=== PATIENT | male | born 1955 | race Caucasian/White ===

== ENCOUNTER 2019-08-25 13:19 | Emergency (ER) | payer SELFPAY ==
--- NOTE | 2019-08-25 13:33 | ER Document Report ---
ED Medical Screen (RME) - General Chief Complaint: Syncope Stated Complaint: SYNCOPE Time Seen by Provider: 08/25/19 13:25 Primary Care Provider: DOMINGO PATEL MD [Primary Care Provider] - Follow up as needed Mode of Arrival: Wheelchair Information source: Patient Notes: 64-year-old male with extensive cardiac history, recent cardiac bypass 1 month ago at [facility] before that history of stents, aortic aneurysm resection, presents to the emergency department with complaints that he has had 1 syncopal episodes today. Reports he was just walking any passed out. Hit his hand on the wall. He is taking Xarelto. Reports today he was walking in the kitchen and he almost passed out but his son caught him. Denies fever vomiting diarrhea. Denies chest pain shortness of breath. Patient still has his sutures from the recent bypass. I have greeted and performed a rapid initial assessment of this patient. A comprehensive ED assessment and evaluation of the patient, analysis of test results and completion of the medical decision making process will be conducted by additional ED providers. Dictation of this chart was performed using voice recognition software; therefore, there may be some unintended grammatical errors. - Related Data Allergies/Adverse Reactions: diazepam [From Valium] Adverse Reaction (Unknown, Verified 08/25/19 13:30) Hypotension Past Medical History - Past Medical History Cardiac Medical History: Reports: Hx Coronary Artery Disease - RIGHT CAROTID ARTERY 100% OCCLUDED , Hx Hypertension Denies: Hx Heart Attack Pulmonary Medical History: Reports: Hx Pneumonia Denies: Hx Asthma, Hx Bronchitis, Hx COPD Neurological Medical History: Denies: Hx Seizures Musculoskeltal Medical History: Reports Hx Arthritis - IN NECK - Immunizations Hx Diphtheria, Pertussis, Tetanus Vaccination: Yes Doctor's Discharge - Discharge Referrals: DOMINGO PATEL MD [Primary Care Provider] - Follow up as needed
[2019-08-25 13:51] LABS: ABSOLUTE EOSINOPHILS # (AUTO) 0.1 10^3/uL (0.0-0.6); ABSOLUTE LYMPHOCYTES (AUTO) 0.9 10^3/uL (0.5-4.7); ABSOLUTE MONOCYTES (AUTO) 0.7 10^3/uL (0.1-1.4); ABSOLUTE NEUT (AUTO) 11.9 10^3/uL (1.7-8.2); BASOPHILS % (AUTO) 0.1 % (0-2); EOSINOPHILS % (AUTO) 0.5 % (0-6); HEMATOCRIT 32.6 % (37.9-51.0); HEMOGLOBIN 10.4 g/dL (13.5-17.0); LYMPHOCYTES % (AUTO) 6.8 % (13-45); MEAN CORPUSCULAR HEMOGLOBIN 24.9 pg (27.0-33.4); MEAN CORPUSCULAR VOLUME 78 fl (80-97); MONOCYTES % (AUTO) 5.1 % (3-13); PLATELET COUNT 168 10^3/uL (150-450); RED BLOOD COUNT 4.19 10^6/uL (4.35-5.55); RED CELL DISTRIBUTION WIDTH 24.2 % (11.5-14.0); SEGMENTED NEUTROPHILS % (AUTO) 87.5 % (42-78); TOTAL CELLS COUNTED % (AUTO) 100 %; WHITE BLOOD COUNT 13.6 10^3/uL (4.0-10.5)
[2019-08-25 14:07] LABS: ALBUMIN 3.3 g/dL (3.5-5.0); ALKALINE PHOSPHATASE 74 U/L (38-126); ANION GAP 8 (5-19); ASPARTATE AMINO TRANSFERASE 22 U/L (17-59); BILIRUBIN,TOTAL 0.9 mg/dL (0.2-1.3); BLOOD UREA NITROGEN 20 mg/dL (7-20); CALCIUM 8.5 mg/dL (8.4-10.2); CARBON DIOXIDE 25 mmol/L (22-30); CHLORIDE 100 mmol/L (98-107); GLUCOSE 88 mg/dL (75-110); POTASSIUM 4.2 mmol/L (3.6-5.0); TOTAL PROTEIN 6.1 g/dL (6.3-8.2)
--- NOTE | 2019-08-25 14:12 | RADIOLOGY REPORT (SQ) ---
EXAM DESCRIPTION: CHEST 2 VIEWS COMPLETED DATE/TIME: 08/25/2019 2:03 pm REASON FOR STUDY: syncope COMPARISON: None. EXAM PARAMETERS: NUMBER OF VIEWS: two views TECHNIQUE: Digital Frontal and Lateral radiographic views of the chest acquired. RADIATION DOSE: NA LIMITATIONS: none FINDINGS: LUNGS AND PLEURA: There are areas of infiltrate in the right upper lobe and left upper lob e. Underlying mass cannot be excluded on the right. Changes in the left upper lobe could represent scarring. Correlation with any previous chest films is recommended. MEDIASTINUM AND HILAR STRUCTURES: No masses or contour abnormalities. HEART AND VASCULAR STRUCTURES: Heart normal size. No evidence for failure. BONES: No acute findings. HARDWARE: Sternotomy wires are in place. OTHER: No other significant finding. IMPRESSION: Masslike infiltrate in the right upper lobe. Focal infiltrate in the left apex possibly scar or pneumonia. TECHNICAL DOCUMENTATION: JOB ID: [id number] [employer]- All Rights Reserved Reading location - IP/workstation name: [email or web address]
[2019-08-25 14:18] LABS: ANISOCYTOSIS 3+; OVALOCYTES 2+; PLATELET COMMENT ADEQUATE; POIKILOCYTOSIS 1+; POLYCHROMASIA 1+; SCHISTOCYTES SLIGHT; TEAR DROP CELLS SLIGHT
[2019-08-25] MEDS ORDERED: DIPH/PERTUSS(ACELL)/TETANUS VAC/PF 0.5 ML SYR (>=10YO) IM ONE (15:21)
--- NOTE | 2019-08-25 15:26 | ER Document Report ---
ED General - General Chief Complaint: Syncope Stated Complaint: SYNCOPE Time Seen by Provider: 08/25/19 13:25 Primary Care Provider: DOMINGO PATEL MD [Primary Care Provider] - Follow up as needed Mode of Arrival: Wheelchair - Related Data Allergies/Adverse Reactions: diazepam [From Valium] Adverse Reaction (Unknown, Verified 08/25/19 13:30) Hypotension Past Medical History - General Information source: Patient - Social History Smoking Status: Unknown if Ever Smoked Frequency of alcohol use: None Drug Abuse: None Family History: None - Noncontributory Patient has suicidal ideation: No Patient has homicidal ideation: No - Past Medical History Cardiac Medical History: Reports: Hx Coronary Artery Disease - RIGHT CAROTID ARTERY 100% OCCLUDED , Hx Hypertension Denies: Hx Heart Attack Pulmonary Medical History: Reports: Hx Pneumonia Denies: Hx Asthma, Hx Bronchitis, Hx COPD Neurological Medical History: Denies: Hx Seizures Musculoskeletal Medical History: Reports Hx Arthritis - IN NECK - Immunizations Hx Diphtheria, Pertussis, Tetanus Vaccination: Yes Hx Pneumococcal Vaccination: 10/13/13 Physical Exam - Vital signs Vitals: Resp BP Pulse Ox 13 141/71 H 100 08/25/19 13:33 08/25/19 13:33 08/25/19 13:33 - Notes Notes: Presents emergency department with a syncopal episode yesterday. He says he was walking across the living room and had some very mild vertiginous symptoms and woke up on the ground. No palpitations chest pain short of breath or headache. He does not remember eating the ground. He woke up on the ground he thinks is only down the for short period of time. He had no tongue biting or incontinence. Was able to get up. Presents blood pressure was 80/50 at the time with a heart rate of 40 and over the next hour or so heart rate and blood pressure improved. He was feeling better so he did not come to the emergency department yesterday. Today had another similar episode he was walking across t he room got lightheaded about to pass out but his son caught him and legs and ground he came around. That time his blood pressure was normal again he had no chest pain shortness of breath headache or palpitations. At this time patient denies any headache chest pain shortness of breath nausea vomiting or abdominal pain. He denies any diarrhea or blood in his stools or dark tarry stools. Diet has been good he has had no fevers or cough. Was discharged from the hospital about a month ago after CABG. As he is not in rehab but is been walking for 15 minutes at a time twice a day and not getting lightheaded. Onset about a week ago he noticed that his heart rate was in the 40s and he stopped taking his metoprolol Past medical history significant for coronary artery disease with recent CABG. He had stents in the past also has history of hypertension. Social history does not smoke occasional alcohol. Tetanus status is unknown Medications he is currently on Xarelto and was placed on amiodarone prophylactically post discharge Review of systems pertinent positives and negatives in HPI otherwise all the systems were reviewed and acutely negative PHYSICIAN EXAM -vital signs are noted triage note and note from triage reviewed GENERAL: Well-appearing, well-nourished and in ___no___ HEAD: Atraumatic, normocephalic. EYES: Pupils equal round and reactive to light, extraocular movements intact, no nystagmus or photophobia sclera anicteric, conjunctiva are normal. ENT: nares patent, oropharynx clear without exudates. Moist mucous membranes. NECK: supple without lymphadenopathy tender in the midline with full range of motion LUNGS: Breath sounds clear to auscultation bilaterally and equal. No wheezes rales or rhonchi. Well-healing wound over the chest HEART: Regular rate and rhythm is a 2/6 systolic ejection murmur. ABDOMEN: Soft, nontender, normoactive bowel sounds. Old area of ecchymosis to the left lower quadrant EXTREMITIES: Trace edema at the ankles is no palpable cords. To the surgical incision sites in the left leg that are healing well left upper extremity the elbow and wrist are nontender the hand is nontender is no pain with flexion or extension of the wrist. He has multiple abrasions over the metacarpal heads PIP joint full range of motion of the digits and good capillary refill NEUROLOGICAL: Alert and oriented x4. Cranial nerves she is symmetrical smile faces and shoulder shrug. His motor strength is symmetric bilateral in the upper lower extremities. Toes downgoing. Sensation intact to light touch. Negative Romberg PSYCH: Normal mood, normal affect. SKIN: Warm, Dry, normal turgor, no rashes or lesions noted. BACK-nontender in the midline Course - Re-evaluation Re-evalutation: 08/25/19 18:48 ED patient is remained stable is been a compliance monitor no severe arrhythmias. Blood pressures been stable. Orthostatic vital signs were obtained was a difference. 5 cc of normal saline is repeated with no change. She reportedly felt dizzy but on repeat he had no dizziness. Able to ambulate to the bathroom without difficulty Medical decision making patient presents with a syncopal episode yesterday associated with hypotension and bradycardia that resolved. He is not taking the beta-joselo so unclear why his heart rate would be slow. This is more consistent with a vasovagal type of episode he was slightly orthostatic here responded to fluids he is feeling better I did discuss the case with his designer/writer who reviewed his laboratory studies and it felt they were about baseline from when he left the hospital was that he had a left bundle in the past. He felt that if the patient was feeling that he could be discharged home hold his blood pressure medications and Xarelto and be seen in the office tomorrow for further evaluation and possible monitoring I discussed findings with patient and family and they are comfortable going home - Vital Signs Vital signs: Temp Pulse Resp BP Pulse Ox 57 L 14 137/79 H 100 08/25/19 17:57 08/25/19 18:01 08/25/19 18:01 08/25/19 18:01 - Laboratory Result Diagrams: 08/25/19 13:39 08/25/19 13:39 Laboratory results interpreted by me: 08/25/19 08/25/19 13:39 13:39 WBC 13.6 H RBC 4.19 L Hgb 10.4 L Hct 32.6 L MCV 78 L MCH 24.9 L RDW 24.2 H Lymph % (Auto) 6.8 L Absolute Neuts (auto) 11.9 H Seg Neutrophils % 87.5 H Sodium 133.1 L Creatinine 1.42 H Est GFR (MDRD) Non-Af 50 L Total Protein 6.1 L Albumin 3.3 L - Diagnostic Test Radiology reviewed: Reports reviewed Radiology results interpreted by me: 08/25/19 18:51 I discussed the chest x-ray findings with the patient and family they report he has had an old chronic scar in his right upper lobe that I do not feel this is acute to represent an infiltrate. He has no complaints of fever or cough - EKG Interpretation by Me Additional EKG results interpreted by me: 08/25/19 18:50 Initial EKG read by me shows a sinus bradycardia with a rate of 55 with a left bundle branch block. There is no scarbosa criteria repeat EKG is unchanged from the first Discharge - Discharge Clinical Impression: Abrasion Syncope Qualifiers: Syncope type: unspecified Qualified Code(s): R55 - Syncope and collapse Disposition: HOME, SELF-CARE Instructions: Syncopal Episode ([facility]) Additional Instructions: Please review the discharge instructions, they will tell you about your disease/injury and what you need to return to the ED for Return to the ED if you feel worse or can follow-up with your family doctor Avoid rapid movement Do not take your enalapril metoprolol or Xarelto in the morning call your designer/writer tomorrow to be seen tomorrow Referrals: DOMINGO PATEL MD [Primary Care Provider] - Follow up as needed
--- NOTE | 2019-08-25 15:51 | RADIOLOGY REPORT (SQ) ---
EXAM DESCRIPTION: CT HEAD WITHOUT COMPLETED DATE/TIME: 08/25/2019 3:39 pm REASON FOR STUDY: Syncope COMPARISON: None. TECHNIQUE: Axial images acquired through the brain without intravenous contrast. Images reviewed wi th bone, brain and subdural windows. Additional sagittal and coronal reconstructions were generated. Images stored on PACS. All CT scanners at this facility use dose modulation, iterative reconstruction, and/or weight based d osing when appropriate to reduce radiation dose to as low as reasonably achievable (ALARA). [facility]: Dose Right [facility]: CareDose [facility]: Dose Right [facility]: Teradose 4D [facility]: Dine in RADIATION DOSE: CT Rad equipment meets quality standard of care and radiation dose reduction techniq ues were employed. CTDIvol: 53.2 mGy. DLP: 1044 mGy-cm. mGy. LIMITATIONS: None. FINDINGS: VENTRICLES: Normal size and contour. CEREBRUM: No masses. No hemorrhage. No midline shift. No evidence for acute infarction. Normal gra y/white matter differentiation. No areas of low density in the white matter. CEREBELLUM: No masses. No hemorrhage. No alteration of density. No evidence for acute infarction. EXTRAAXIAL SPACES: No fluid collections. No masses. ORBITS AND GLOBE: No intra- or extraconal masses. Normal contour of globe without masses. CALVARIUM: No fracture. PARANASAL SINUSES: No fluid or mucosal thickening. SOFT TISSUES: No mass or hematoma. OTHER: No other significant finding. IMPRESSION: NORMAL BRAIN CT WITHOUT CONTRAST. EVIDENCE OF ACUTE STROKE: NO. COMMENT: Quality ID # [id number]: Final reports with documentation of one or more dose reduction techniques (e.g., Automated exposure control, adjustment of the mA and/or kV according to patient size, use of iterative reconstruction technique) TECHNICAL DOCUMENTATION: JOB ID: [id number] [employer]- All Rights Reserved Reading location - IP/workstation name: [email or web address]
[2019-08-25 15:55] LABS: APPEARANCE,URINE CLEAR; BILIRUBIN,URINE NEGATIVE (NEGATIVE); COLOR,URINE STRAW; GLUCOSE, URINE NEGATIVE (NEGATIVE); KETONES,URINE NEGATIVE (NEGATIVE); LEUKOCYTE ESTERASE,URINE NEGATIVE (NEGATIVE); NITRITE,URINE NEGATIVE (NEGATIVE); PROTEIN,URINE NEGATIVE (NEGATIVE); URINE SPECIFIC GRAVITY 1.004; UROBILINOGEN,URINE NEGATIVE mg/dL (<2.0)
[2019-08-25] MEDS ORDERED: NORMAL SALINE 500 ML IV ONE (16:28)
[2019-08-25 18:33] VITALS: BP 137/79
--- NOTE | 2019-08-25 23:29 | EKG REPORT ---
SEVERITY:- ABNORMAL ECG - SINUS RHYTHM LEFT BUNDLE BRANCH BLOCK : Confirmed by: Paulette Holman MD 25-Aug-2019 23:28:52
--- NOTE | 2019-08-25 23:29 | EKG REPORT ---
SEVERITY:- ABNORMAL ECG - SINUS RHYTHM FIRST DEGREE AV BLOCK LEFT BUNDLE BRANCH BLOCK : Confirmed by: Paulette Holman MD 25-Aug-2019 23:28:47
== END 2019-08-25 18:30 | disposition home or self-care (01) ==
LOC: ER 13:19
DX: R55 Syncope and collapse (principal); S60.519A Abrasion of unspecified hand, initial encounter; X58.XXXA Exposure to other specified factors, initial encounter; Z95.5 Presence of coronary angioplasty implant and graft; I25.10 Atherosclerotic heart disease of native coronary artery without angina pectoris; I10 Essential (primary) hypertension; Z79.01 Long term (current) use of anticoagulants; Z79.899 Other long term (current) drug therapy
CPT/HCPCS: 93005; 36415; 85025; 80053; 81001; 84484; 71046; 70450; 90715; 93010; J7040

== ENCOUNTER 2020-04-07 15:32 | Inpatient (IN) | payer SELFPAY ==
[2020-04-07 16:09] LABS: ABSOLUTE EOSINOPHILS # (AUTO) 0.1 10^3/uL (0.0-0.6); ABSOLUTE LYMPHOCYTES (AUTO) 0.4 10^3/uL (0.5-4.7); ABSOLUTE MONOCYTES (AUTO) 0.4 10^3/uL (0.1-1.4); ABSOLUTE NEUT (AUTO) 1.4 10^3/uL (1.7-8.2); BASOPHILS % (AUTO) 0.3 % (0-2); EOSINOPHILS % (AUTO) 4.3 % (0-6); HEMATOCRIT 29.3 % (37.9-51.0); HEMOGLOBIN 9.5 g/dL (13.5-17.0); LYMPHOCYTES % (AUTO) 16.6 % (13-45); MEAN CORPUSCULAR HEMOGLOBIN 21.8 pg (27.0-33.4); MEAN CORPUSCULAR HGB CONC 32.4 g/dL (32.0-36.0); MEAN CORPUSCULAR VOLUME 67 fl (80-97); MONOCYTES % (AUTO) 18.2 % (3-13); PLATELET COUNT 183 10^3/uL (150-450); RED BLOOD COUNT 4.35 10^6/uL (4.35-5.55); RED CELL DISTRIBUTION WIDTH 18.4 % (11.5-14.0); SEGMENTED NEUTROPHILS % (AUTO) 60.6 % (42-78); TOTAL CELLS COUNTED % (AUTO) 100 %; WHITE BLOOD COUNT 2.3 10^3/uL (4.0-10.5)
[2020-04-07 16:24] LABS: ALBUMIN 3.2 g/dL (3.5-5.0); ALKALINE PHOSPHATASE 459 U/L (38-126); ANION GAP 8 (5-19); ASPARTATE AMINO TRANSFERASE 249 U/L (17-59); BILIRUBIN,DIRECT 0.1 mg/dL (0.0-0.4); BILIRUBIN,TOTAL 0.7 mg/dL (0.2-1.3); BLOOD UREA NITROGEN 9 mg/dL (7-20); CALCIUM 7.7 mg/dL (8.4-10.2); CARBON DIOXIDE 23 mmol/L (22-30); CHLORIDE 99 mmol/L (98-107); CREATINE KINASE 77 U/L (55-170); GLUCOSE 95 mg/dL (75-110); POTASSIUM 4.2 mmol/L (3.6-5.0); TOTAL PROTEIN 6.3 g/dL (6.3-8.2)
--- NOTE | 2020-04-07 16:26 | RADIOLOGY REPORT (SQ) ---
EXAM DESCRIPTION: CHEST SINGLE VIEW IMAGES COMPLETED DATE/TIME: 04/07/2020 4:04 pm REASON FOR STUDY: sob COMPARISON: 08/25/2019 EXAM PARAMETERS: NUMBER OF VIEWS: One view. TECHNIQUE: Single frontal radiographic view of the chest acquired. RADIATION DOSE: NA LIMITATIONS: None. FINDINGS: LUNGS AND PLEURA: Scarring in the right upper lobe than left upper lobe. There is a somew hat reticulonodular opacification in the left base that is not seen on the earlier study. MEDIASTINUM AND HILAR STRUCTURES: No masses. Contour normal. HEART AND VASCULAR STRUCTURES: Heart normal in size. Normal vasculature. BONES: No acute findings. HARDWARE: None in the chest. OTHER: No other significant finding. IMPRESSION: Cannot exclude a limited left lower lobe pneumonia. TECHNICAL DOCUMENTATION: JOB ID: [id number] 2010 [employer]- All Rights Reserved Reading location - IP/workstation name: [email or web address]
[2020-04-07 16:35] LABS: CREATINE KINASE MB 1.57 ng/mL (<4.55); TROPONIN I 0.015 ng/mL
--- NOTE | 2020-04-07 16:40 | ER Document Report ---
ED General - General Chief Complaint: Shortness Of Breath Stated Complaint: SHORTNESS OF BREATH Primary Care Provider: DOMINGO PATEL MD [Primary Care Provider] - Follow up as needed Mode of Arrival: Ambulatory Information source: Patient Notes: 04/07/20 15:46 - ED Nursing Note by CYNTHIA CHRISTIANSONY Acct Num: [id number] : 1955 Patient Age: 64 pt presents to the ED via EMS with report of increasing shortness of breath. Pt tested positive for COVID on 03/27 and states that he has been staying home and resting. Over the past few days he states that he has been having fevers up to 103, temp of 99.9 today. pt states when he awoke this morning and reports that he vomited and is nauseous with increasing shortness of breath. Pt was 75% on RA when EMS arrived. Pt is currently on 6L NC and 93%. Pt denies pain and nausea at this time. Pt is a/ox4, breathing is rapid, on the bedside monitor at this time. Will continue to monitor my notes 64-year-old male arrives by EMS with mild cough and shortness of breath. He was running fevers and having diarrhea for the last 4 days. This morning he had some nausea with vomiting and some increasing shortness of breath. The sats were low when EMS arrived and they increased to 93% on 6 L. Patient reports his was diagnosed with COVID-19 2 weeks ago and intubated in the ICU upstairs. Patient also tested positive last week for juarez virus. Patient has a prior history of a CABG in 2008 and quit smoking 2 packs/day since he began when he was 15 years old. Patient also had an aortic graft in the same year. He has a old scar from his manubrium to below his umbilicus. - HPI Onset: Other - 4 days ago Onset/Duration: Persistent, Worse Quality of pain: Achy Severity: Mild Pain Level: 1 Associated symptoms: Body/muscle aches, Diarrhea, Fever Exacerbated by: Denies Relieved by: Denies Similar symptoms previously: No Recently seen / treated by doctor: No - Related Data Allergies/Adverse Reactions: diazepam [From Valium] Adverse Reaction (Unknown, Verified 08/25/19 13:30) Hypotension Home Medications: meds at the bedside Past Medical History - General Information source: Patient - Social History Smoking Status: Former Smoker Cigarette use (# per day): No Chew tobacco use (# tins/day): No Smoking Education Provided: No Frequency of alcohol use: None Drug Abuse: None Lives with: Family Family History: None - Noncontributory, Reviewed & Not Pertinent Patient has suicidal ideation: No Patient has homicidal ideation: No - Past Medical History Cardiac Medical History: Reports: Hx Coronary Artery Disease - RIGHT CAROTID ARTERY 100% OCCLUDED , Hx Hypertension Denies: Hx Heart Attack Pulmonary Medical History: Reports: Hx Pneumonia Denies: Hx Asthma, Hx Bronchitis, Hx COPD Neurological Medical History: Denies: Hx Seizures Musculoskeletal Medical History: Reports Hx Arthritis - IN NECK - Immunizations Hx Diphtheria, Pertussis, Tetanus Vaccination: Yes Hx Pneumococcal Vaccination: 10/13/13 Review of Systems - Review of Systems Constitutional: See HPI, Fever, Malaise, Weakness, Recent illness EENT: See HPI, Throat pain Cardiovascular: See HPI, Dyspnea, Dizziness, Lightheaded Respiratory: See HPI, Cough, Short of breath Gastrointestinal: See HPI, Diarrhea Genitourinary: No symptoms reported Male Genitourinary: No symptoms reported Musculoskeletal: No symptoms reported Skin: See HPI Hematologic/Lymphatic: No symptoms reported Neurological/Psychological: No symptoms reported Physical Exam - Vital signs Vitals: Resp Pulse Ox 21 H 92 04/07/20 15:37 04/07/20 15:37 Interpretation: Hypoxic, Tachypneic, Febrile, Other - General General appearance: Alert - HEENT Head: Normocephalic, Atraumatic Eyes: Normal Pupils: PERRL Sinus: Normal Nasal: Normal Mouth/Lips: Normal Mucous membranes: Dry Pharynx: Normal Neck: Normal - Respiratory Respiratory status: Tachypnea Chest status: Tender - Left anterior chest Breath sounds: Normal Chest palpation: Normal - Cardiovascular Rhythm: Regular Heart sounds: Normal auscultation Murmur: No - Abdominal Inspection: Normal Distension: No distension Bowel sounds: Normal Tenderness: Nontender Organomegaly: No organomegaly - Rectal Hemorrhoids: Other - deferred - Genitourinary Scrotum: Other - deferred - Back Back: Normal - Extremities General upper extremity: Normal inspection, Nontender, Normal color, Normal ROM, Normal temperature General lower extremity: Normal inspection, Nontender, Normal color, Normal ROM, Normal temperature, Normal weight bearing. No: Fabiola's sign - Neurological Neuro grossly intact: Yes Cognition: Normal Orientation: AAOx4 [place] Coma Scale Eye Opening: Spontaneous Randall Coma Scale Verbal: Oriented [place] Coma Scale Motor: Obeys Commands [place] Coma Scale Total: 15 Speech: Normal Motor strength normal: LUE, RUE, LLE, RLE Sensory: Normal - Psychological Associated symptoms: Normal affect - Skin Skin Temperature: Warm Skin Turgor: Tenting Course - Vital Signs Vital signs: Temp Pulse Resp BP Pulse Ox 98.9 F 19 123/75 91 L 04/07/20 16:37 04/07/20 16:01 04/07/20 16:01 04/07/20 16:01 - Laboratory Result Diagrams: 04/07/20 15:40 04/07/20 15:40 Laboratory results interpreted by me: 04/07/20 04/07/20 15:40 15:40 WBC 2.3 L Hgb 9.5 L Hct 29.3 L MCV 67 L MCH 21.8 L RDW 18.4 H Jack % (Auto) 18.2 H Absolute Neuts (auto) 1.4 L Absolute Lymphs (auto) 0.4 L Sodium 129.9 L Creatinine 1.30 H Est GFR (MDRD) Non-Af 56 L Calcium 7.7 L AST 249 H ALT 98 H Alkaline Phosphatase 459 H Albumin 3.2 L - Diagnostic Test Radiology reviewed: Reports reviewed - EKG Interpretation by Me EKG shows normal: Sinus rhythm Rate: Normal Rhythm: NSR Critical Care Note - Critical Care Note Total time excluding time spent on procedures (mins): 90 Comments: I discussed this case with Dr. Flores initially and then Dr. Conn 1500. Discharge - Discharge Clinical Impression: COVID-19 Pneumonia Qualifiers: Pneumonia type: due to unspecified organism Laterality: left Lung location: lower lobe of lung Qualified Code(s): J18.9 - Pneumonia, unspecified organism Condition: Fair Disposition: ADMITTED INPATIENT Admitting Provider: Senia (Hospitalist) Unit Admitted: IMCU Referrals: DOMINGO PATEL MD [Primary Care Provider] - Follow up as needed
[2020-04-07] MEDS ORDERED: VANCOMYCIN HCL INJ 1000 MG VIAL IV ONE (17:01)
[2020-04-07] MEDS ORDERED: PIPERACILLIN/TAZOBACTAM 3.375 GM VIAL IV ONE (17:01)
[2020-04-07] MEDS ORDERED: LEVOFLOXACIN 750 MG/D5W RTU 750 MG/150 ML RTUPB IV ONE (17:02)
[2020-04-07 18:36] LABS: APPEARANCE,URINE CLEAR; BILIRUBIN,URINE NEGATIVE (NEGATIVE); COLOR,URINE YELLOW; GLUCOSE, URINE NEGATIVE (NEGATIVE); KETONES,URINE NEGATIVE (NEGATIVE); LEUKOCYTE ESTERASE,URINE NEGATIVE (NEGATIVE); NITRITE,URINE NEGATIVE (NEGATIVE); PROTEIN,URINE NEGATIVE (NEGATIVE); URINE SPECIFIC GRAVITY 1.005; UROBILINOGEN,URINE NEGATIVE mg/dL (<2.0)
--- NOTE | 2020-04-07 19:16 | EKG REPORT ---
SEVERITY:- ABNORMAL ECG - SINUS RHYTHM LEFT BUNDLE BRANCH BLOCK : Confirmed by: Alexis Gallegos 07-Apr-2020 19:15:41
[2020-04-07] MEDS ORDERED: VANCOMYCIN HCL INJ 1000 MG VIAL ONE (20:02)
[2020-04-08] MEDS ORDERED: FAMOTIDINE 20 MG TABLET PO ONE (00:45)
[2020-04-08] MEDS ORDERED: NAPROXEN 250 MG TABLET ONE ×2 (01:24→21:48)
[2020-04-08] MEDS: NAPROXEN 250 MG TABLET PO PRN ×2 (01:53→22:02)
[2020-04-08] MEDS ORDERED: MAGNESIUM HYDROXIDE SUSP 30 ML UDCUP PO PRN (03:06)
[2020-04-08] MEDS ORDERED: GUAIFENESIN SYRP 200 MG/10 ML UDC PO PRN (03:06)
[2020-04-08] MEDS ORDERED: MAG HYDROX/AL HYDROX/SIMETH SUSP 30 ML UDCUP PO PRN (03:06)
[2020-04-08] MEDS ORDERED: LORAZEPAM INJ 2 MG/1 ML VIAL IV PRN (03:06)
[2020-04-08] MEDS ORDERED: ACETAMINOPHEN 325 MG TABLET PO PRN (03:06)
[2020-04-08] MEDS ORDERED: MORPHINE SULFATE 10 MG/ML INJ IV PRN (03:06)
[2020-04-08] MEDS ORDERED: ALBUTEROL SULFATE HFA (90 MCG/PUFF) 8 GM MDI IH PRN (03:11)
[2020-04-08] MEDS ORDERED: RINGERS SOLUTION,LACTATED 1,000 ML IV PRN (03:11)
[2020-04-08] MEDS ORDERED: CHLORPROMAZINE HCL INJ 25 MG/1 ML AMPULE ONE (03:48)
--- NOTE | 2020-04-08 03:55 | PDOC H&P ---
History of Present Illness Admission Date/PCP: 04/07/20 17:29 DOMINGO PATEL MD Patient complains of: Dyspnea History of Present Illness: BRAYAN CUH is a 64 year old male who presented emergency room with a 4-day history of dyspnea. He admits testing positive for COVID-19 on 03/27/2020 and since that time has been quarantining at home. 4 days ago he began having mild dyspnea which has subsequently progressed to becoming severe today. His dyspnea is worsened by exertion and activity. His dyspnea has been accompanied by generalized malaise, ague and intermittent fevers to 103 F, and has been associated with episodic nausea with vomiting and diarrhea. He denies other associated or accompanying signs and symptoms. He denies prior similar episodes. He notes his was diagnosed with COVID-19 2 weeks ago and is hospitalized in the ICU on a ventilator. He has not identified any additional aggravating or ameliorating factors for his dyspnea. In the emergency room he was found to have a leukopenia, anemia, elevated liver function tests, hyponatremia and a possible left lower lobe pneumonia with acute hypoxic respiratory failure. He was subsequently admitted to the hospital for further evaluation and treatment. Past Medical History Cardiac Medical History: Reports: Coronary Artery Disease - RIGHT CAROTID ARTERY 100% OCCLUDED , Hyperlipidema, Hypertension, Peripheral Vascular Disease - Carotid and aortic disease Denies: Atrial Fibrillation, Congestive Heart Failure, Myocardial Infarction Pulmonary Medical History: Reports: Pneumonia Denies: Asthma, Bronchitis, Chronic Obstructive Pulmonary Disease (COPD) EENT Medical History: Denies: Cataracts, Ears - Hearing aids Neurological Medical History: Reports: Other - TIA Denies: Hemorrhagic CVA, Ischemic CVA, Seizures Endocrine Medical History: Denies: Diabetes Mellitus Type 1, Diabetes Mellitus Type 2, Hyperthyroidism, Hypothyroidism, Obesity Renal/ Medical History: Reports: Chronic Kidney Disease Denies: Nephrolithiasis Malignancy Medical History: Reports: Skin Cancer GI Medical History: Denies: Cirrhosis, Crohn's Disease, Hepatitis, Peptic Ulcer Disease, Ulcerative Colitis Musculoskeltal Medical History: Reports: Arthritis - Cervical arthritis Denies: Gout Skin Medical History: Denies: Eczema, Psoriasis Psychiatric Medical History: Reports: Depression Denies: Alcohol Dependency, Substance Abuse, Tobacco Dependency Traumatic Medical History: Reports: None Hematology: Denies: Anemia, Bleeding Tendencies Infectious Medical History: Reports: None Past Surgical History Past Surgical History: Reports: Appendectomy, Cardiac Catheterization, Coronary Artery Bypass Graft, Coronary Stent, Vascular Surgery - Abdominal aortic aneurysm Social History Information Source: Patient Lives with: Family Smoking Status: Former Smoker Electronic Cigarette use?: No Frequency of Alcohol Use: None Hx Recreational Drug Use: No Drugs: None Hx Prescription Drug Abuse: No - Advance Directive Resuscitation Status: Full Code Surrogate healthcare decision maker:: Santana Wolfeinkley Family History Family History: CAD, Hypertension, Malignancy. denies: DM Parental Family History Reviewed: Yes Children Family History Reviewed: No Sibling(s) Family History Reviewed.: Yes Medication/Allergy Home Medications: Alprazolam [Xanax] 1 mg PO BID 04/07/20 Atorvastatin Calcium [Lipitor 40 mg Tablet] 40 mg PO QHS 04/07/20 Citalopram Hydrobromide [Celexa 20 mg Tablet] 20 mg PO DAILY 04/07/20 Clopidogrel Bisulfate [Plavix 75 mg Tablet] 75 mg PO DAILY 04/07/20 Enalapril Maleate [Vasotec 2.5 mg Tablet] 2.5 mg PO DAILY 04/07/20 Temazepam [Restoril] 30 mg PO HSP PRN 04/07/20 Allergies/Adverse Reactions: diazepam [From Valium] Adverse Reaction (Unknown, Verified 08/25/19 13:30) Hypotension Review of Systems Constitutional: PRESENT: fever(s), other - Malaise Eyes: ABSENT: visual disturbances, other - Eye pain Ears: ABSENT: hearing changes, other - Ear pain Nose, Mouth, and Throat: ABSENT: headache(s), sore throat Cardiovascular: PRESENT: as per HPI, dyspnea on exertion. ABSENT: chest pain, palpitations Respiratory: PRESENT: as per HPI, dyspnea. ABSENT: cough Gastrointestinal: PRESENT: as per HPI, diarrhea, nausea, vomiting. ABSENT: abdominal pain, constipation Genitourinary: ABSENT: dysuria, hematuria Musculoskeletal: ABSENT: back pain, joint swelling Integumentary: ABSENT: pruritus, rash Neurological: ABSENT: confusion, convulsions, focal weakness, memory loss, syncope Psychiatric: ABSENT: anxiety, depression Endocrine: ABSENT: cold intolerance, heat intolerance Hematologic/Lymphatic: ABSENT: easy bleeding, easy bruising Allergic/Immunologic: ABSENT: seasonal rhinorrhea Physical Exam Vital Signs: Temp Pulse Resp BP Pulse Ox 98.0 F 65 18 140/74 H 86 L 04/07/20 23:16 04/07/20 23:16 04/07/20 23:16 04/07/20 23:16 04/07/20 23:16 Intake & Output 04/06/20 04/07/20 04/08/20 23:59 23:59 23:59 Intake Total 150 Balance 150 Weight 80.1 kg General appearance: PRESENT: no acute distress, cooperative, other - On supplemental oxygen at time of my evaluation Head exam: PRESENT: atraumatic, normocephalic Eye exam: PRESENT: conjunctiva pink. ABSENT: conjunctival injection, scleral icterus Ear exam: PRESENT: normal external ear exam. ABSENT: bleeding, drainage Mouth exam: PRESENT: dry mucosa, neck supple Neck exam: ABSENT: thyromegaly, tracheal deviation Respiratory exam: PRESENT: clear to auscultation moni, symmetrical, unlabored Cardiovascular exam: PRESENT: RRR. ABSENT: clicks, gallop, rubs Pulses: PRESENT: normal radial pulses, normal dorsalis pedis pul Vascular exam: PRESENT: normal capillary refill. ABSENT: pallor GI/Abdominal exam: PRESENT: normal bowel sounds, soft Rectal exam: PRESENT: deferred Extremities exam: ABSENT: joint swelling, pedal edema Musculoskeletal exam: ABSENT: deformity, dislocation Neurological exam: PRESENT: alert, oriented to person, oriented to place, oriented to time, oriented to situation, CN II-XII grossly intact. ABSENT: motor sensory deficit Psychiatric exam: PRESENT: appropriate affect, normal mood Skin exam: PRESENT: dry, intact, warm. ABSENT: jaundice, rash, urticaria Results Laboratory Results: 04/07/20 15:40 04/07/20 15:40 04/07/20 04/07/20 04/07/20 15:40 15:40 15:40 WBC 2.3 L RBC 4.35 Hgb 9.5 L Hct 29.3 L MCV 67 L MCH 21.8 L MCHC 32.4 RDW 18.4 H Plt Count 183 Seg Neutrophils % 60.6 Sodium 129.9 L Potassium 4.2 Chloride 99 Carbon Dioxide 23 Anion Gap 8 BUN 9 Creatinine 1.30 H Est GFR ( Amer) > 60 Glucose 95 Lactic Acid 2.0 Calcium 7.7 L Total Bilirubin 0.7 AST 249 H Alkaline Phosphatase 459 H Total Protein 6.3 Albumin 3.2 L Urine Color Urine Appearance Urine pH Ur Specific [place] Urine Protein Urine Glucose (UA) Urine Ketones Urine Blood Urine Nitrite Ur Leukocyte Esterase Urine WBC (Auto) Urine RBC (Auto) 04/07/20 18:16 WBC RBC Hgb Hct MCV MCH MCHC RDW Plt Count Seg Neutrophils % Sodium Potassium Chloride Carbon Dioxide Anion Gap BUN Creatinine Est GFR ( Amer) Glucose Lactic Acid Calcium Total Bilirubin AST Alkaline Phosphatase Total Protein Albumin Urine Color YELLOW Urine Appearance CLEAR Urine pH 6.0 Ur Specific [place] 1.005 Urine Protein NEGATIVE Urine Glucose (UA) NEGATIVE Urine Ketones NEGATIVE Urine Blood NEGATIVE Urine Nitrite NEGATIVE Ur Leukocyte Esterase NEGATIVE Urine WBC (Auto) 0 Urine RBC (Auto) 0 04/07/20 04/07/20 15:40 15:40 Creatine Kinase 77 CK-MB (CK-2) 1.57 Troponin I 0.015 Impressions: Chest X-Ray 04/07/20 15:36 IMPRESSION: Cannot exclude a limited left lower lobe pneumonia. Assessment and Plan - Diagnosis (1) Pneumonia due to COVID-19 virus Is this a current diagnosis for this admission?: Yes (2) Acute respiratory failure with hypoxia Is this a current diagnosis for this admission?: Yes (3) Leukopenia Qualifiers: Leukopenia type: unspecified Qualified Code(s): D72.819 - Decreased white blood cell count, unspecified Is this a current diagnosis for this admission?: Yes (4) Elevated liver function tests Is this a current diagnosis for this admission?: Yes (5) Hyponatremia Is this a current diagnosis for this admission?: Yes (6) Chronic kidney disease (CKD), stage III (moderate) Is this a current diagnosis for this admission?: Yes (7) Anemia secondary to renal failure Is this a current diagnosis for this admission?: Yes (8) Coronary artery disease Qualifiers: Coronary Disease-Associated Artery/Lesion type: [place] artery [place] vs. transplanted heart: [place] heart Associated angina: without angina Qualified Code(s): I25.10 - Atherosclerotic heart disease of [place] coronary artery with out angina pectoris Is this a current diagnosis for this admission?: Yes (9) Hypertension Qualifiers: Hypertension type: essential hypertension Qualified Code(s): I10 - Essential (primary) hypertension Is this a current diagnosis for this admission?: Yes - Plan Summary Summary: Patient be admitted to the [facility] COVID-19 unit where he will receive routine supportive and symptomatic cares. He will be treated with IV Rocephin and azithromycin. In light of his increasing oxygen requirements to maintain an adequate oxygen saturation and overall worsening of condition he will be started on dexamethasone 2 mg IV every 8 hours. He will be maintained IV fluids utilizing lactated Ringer solution at 167 mL/h. CBCs, metabolic profiles, magnesium levels, liver function studies and serial lactic acid levels will be obtained as appropriate. Additional laboratory and/or radiographic evaluations will be obtained as appropriate. Patient will be placed on a cardiac diet. He will receive morphine 2 to 4 mg IV every 2 hours as needed for pain. He will receive Ativan 1 mg IV every 4 hours as needed for anxiety or restlessness. He will receive supplemental oxygen via nasal cannula with use of noninvasive airway pressure support devices such as BiPAP or CPAP if required. - Time Time Spent with patient: Less than 15 minutes Medications reviewed and adjusted accordingly: Yes Anticipated discharge: Home - Inpatient Certification Based on my medical assessment, after consideration of the patient's comorbidit ies, presenting symptoms, or acuity I expect that the services needed warrant INPATIENT care.: Yes I certify that my determination is in accordance with my understanding of Me memo's requirements for reasonable and necessary INPATIENT services [42 CFR 412.3e].: Yes Medical Necessity: Need Close Monitoring Due to Risk of Patient Decompensation, Need For IV Fluids, Need For Continuous Telemetry Monitoring, Risk of Complication if Not Cared For in Hospital
[2020-04-08 04:35] LABS: PROTHROMBIN TIME 16.3 SEC (11.4-15.4)
[2020-04-08 04:36] LABS: ALBUMIN 2.8 g/dL (3.5-5.0); ALKALINE PHOSPHATASE 371 U/L (38-126); ASPARTATE AMINO TRANSFERASE 160 U/L (17-59); BILIRUBIN,TOTAL 0.7 mg/dL (0.2-1.3); TOTAL PROTEIN 5.4 g/dL (6.3-8.2)
[2020-04-08] MEDS: DEXAMETHASONE SOD PHOSPHATE INJ 4 MG/1 ML VIAL IV SCH ×3 (05:00→20:05)
[2020-04-08] MEDS: HEPARIN SOD (PORCINE) 5,000 UNIT/ML 1 ML VIAL SUBCUT SCH ×3 (06:14→21:45)
[2020-04-08] MEDS: CEFTRIAXONE 1 GM/D5W RTU 1 GM/50 ML RTUPB IV SCH ×2 (06:16→21:44)
[2020-04-08] MEDS ORDERED: AZITHROMYCIN INJ 500 MG VIAL IV ONE (06:21)
[2020-04-08] MEDS: AZITHROMYCIN 500 MG in DEXTROSE 5%-WATER 250 ML IV SCH ×2 (06:27→21:44)
[2020-04-08] MEDS ORDERED: ALBUTEROL SULFATE HFA (90 MCG/PUFF) 200 PUFF/8.5 GM MDI IH PRN (07:37)
[2020-04-08] MEDS: FAMOTIDINE 20 MG TABLET PO SCH ×2 (10:34→17:52)
[2020-04-08] MEDS: ZINC SULFATE 220 MG CAPSULE PO SCH (10:34)
[2020-04-08] MEDS: CHOLECALCIFEROL (D3) 1,000 UNIT (25 MCG) TABLET PO SCH (10:34)
[2020-04-08] MEDS: DOCUSATE SODIUM 100 MG CAPSULE PO SCH ×2 (10:34→17:52)
[2020-04-08] MEDS: CLOPIDOGREL BISULFATE 75 MG TABLET PO SCH (10:34)
[2020-04-08] MEDS: ENALAPRIL MALEATE 2.5 MG TABLET PO SCH (10:34)
[2020-04-08] MEDS: ASCORBIC ACID 500 MG TABLET PO SCH (10:34)
[2020-04-08] MEDS: CITALOPRAM HYDROBROMIDE 20 MG TABLET PO SCH (10:35)
--- NOTE | 2020-04-08 10:56 | PDOC PROGRESS REPORT ---
Subjective Progress Note for:: 04/08/20 Subjective:: Patient still having some shortness of breath. However does not feel extremely dyspneic at this time. He is on 6 L nasal cannula. He denies any chest pain. Still feels very fatigued with poor appetite. Have encouraged patient to try to eat. Reason For Visit: COVID-19 PNEUMONIA,ACUTE RESPIRATORY FAILURE WITH Physical Exam Vital Signs: Temp Pulse Resp BP Pulse Ox 97.7 F 52 L 22 H 114/60 92 04/08/20 08:18 04/08/20 08:18 04/08/20 08:18 04/08/20 08:18 04/08/20 08:18 Intake & Output 04/07/20 04/08/20 04/09/20 06:59 06:59 06:59 Intake Total 150 Balance 150 Weight 80 kg General appearance: PRESENT: no acute distress, cooperative, other - Appears fatigued. ABSENT: thin Neck exam: ABSENT: JVD Respiratory exam: PRESENT: symmetrical, unlabored. ABSENT: accessory muscle use, retraction, tachypnea Cardiovascular exam: PRESENT: RRR. ABSENT: bradycardia, irregular rhythm, tachycardia GI/Abdominal exam: ABSENT: ascites, distended Neurological exam: PRESENT: alert, awake, oriented to person, oriented to place, oriented to time, oriented to situation Psychiatric exam: ABSENT: agitated, anxious Skin exam: ABSENT: jaundice Results Laboratory Results: 04/07/20 15:40 04/07/20 15:40 04/07/20 04/07/20 04/07/20 15:40 15:40 15:40 WBC 2.3 L RBC 4.35 Hgb 9.5 L Hct 29.3 L MCV 67 L MCH 21.8 L MCHC 32.4 RDW 18.4 H Plt Count 183 Seg Neutrophils % 60.6 Sodium 129.9 L Potassium 4.2 Chloride 99 Carbon Dioxide 23 Anion Gap 8 BUN 9 Creatinine 1.30 H Est GFR ( Amer) > 60 Glucose 95 Lactic Acid 2.0 Calcium 7.7 L Total Bilirubin 0.7 AST 249 H Alkaline Phosphatase 459 H Total Protein 6.3 Albumin 3.2 L Urine Color Urine Appearance Urine pH Ur Specific [place] Urine Protein Urine Glucose (UA) Urine Ketones Urine Blood Urine Nitrite Ur Leukocyte Esterase Urine WBC (Auto) Urine RBC (Auto) 04/07/20 04/08/20 04/08/20 18:16 04:00 04:00 WBC RBC Hgb Hct MCV MCH MCHC RDW Plt Count Seg Neutrophils % Sodium Potassium Chloride Carbon Dioxide Anion Gap BUN Creatinine Est GFR ( Amer) Glucose Lactic Acid 1.2 Calcium Total Bilirubin 0.7 AST 160 H Alkaline Phosphatase 371 H Total Protein 5.4 L Albumin 2.8 L Urine Color YELLOW Urine Appearance CLEAR Urine pH 6.0 Ur Specific [place] 1.005 Urine Protein NEGATIVE Urine Glucose (UA) NEGATIVE Urine Ketones NEGATIVE Urine Blood NEGATIVE Urine Nitrite NEGATIVE Ur Leukocyte Esterase NEGATIVE Urine WBC (Auto) 0 Urine RBC (Auto) 0 04/08/20 08:10 WBC RBC Hgb Hct MCV MCH MCHC RDW Plt Count Seg Neutrophils % Sodium Potassium Chloride Carbon Dioxide Anion Gap BUN Creatinine Est GFR ( Amer) Glucose Lactic Acid 1.4 Calcium Total Bilirubin AST Alkaline Phosphatase Total Protein Albumin Urine Color Urine Appearance Urine pH Ur Specific [place] Urine Protein Urine Glucose (UA) Urine Ketones Urine Blood Urine Nitrite Ur Leukocyte Esterase Urine WBC (Auto) Urine RBC (Auto) 04/07/20 04/07/20 15:40 15:40 Creatine Kinase 77 CK-MB (CK-2) 1.57 Troponin I 0.015 Impressions: Chest X-Ray 04/07/20 15:36 IMPRESSION: Cannot exclude a limited left lower lobe pneumonia. Assessment and Plan - Diagnosis (1) Acute respiratory failure with hypoxia Is this a current diagnosis for this admission?: Yes Plan: Secondary to COVID-19. Currently on 6 L nasal cannula with SPO2 in the mid to low 90s. Continue oxygen supplementation as required. Should patient's SPO2 drop further, will transition to high flow nasal cannula. Continue dexamethasone. Will monitor closely. (2) Pneumonia due to COVID-19 virus Is this a current diagnosis for this admission?: Yes Plan: Tested positive for COVID-19 on 03/27/2020 outpatient at PCPs office. Currently on azithromycin as well as ceftriaxone which I will continue in case of concomitant bacterial infection. Supportive care. Started zinc supplements, vitamin C, vitamin D supplements. (3) Hyponatremia Is this a current diagnosis for this admission?: Yes Plan: Likely secondary to dehydration. Administering IV fluids. Will measure metabolic panel in the morning (4) Chronic kidney disease (CKD), stage III (moderate) Is this a current diagnosis for this admission?: Yes Plan: Creatinine of 1.3 on presentation. Labs from 08/2019 show creatinine of 1.4. This could very well be his baseline creatinine indicating of CKD. Will administer fluids given dehydration and check metabolic panel in the morning. (5) Elevated liver function tests Is this a current diagnosis for this admission?: Yes Plan: Likely secondary to viral infection accompanied by leukopenia. Notably transaminases were normal in 08/2019. Does seem to be trending down now. We will opt to monitor simply at this point. (6) Hypertension Qualifiers: Hypertension type: essential hypertension Qualified Code(s): I10 - Essential (primary) hypertension Is this a current diagnosis for this admission?: Yes Plan: Continue enalapril - Time Time Spent with patient: Less than 15 minutes
[2020-04-08] MEDS ORDERED: ALBUTEROL SULFATE HFA (90 MCG/PUFF) 8 GM MDI IH SCH (12:00)
[2020-04-08] MEDS: ALBUTEROL SULFATE HFA (90 MCG/PUFF) 200 PUFF/8.5 GM MDI IH SCH ×2 (12:37→17:52)
[2020-04-08] MEDS: RINGERS SOLUTION,LACTATED 1,000 ML IV PRN ×2 (12:45→20:04)
[2020-04-08] MEDS: ALPRAZOLAM 0.5 MG TABLET PO PRN (21:45)
[2020-04-08] MEDS: ATORVASTATIN CALCIUM 40 MG TABLET PO SCH (21:45)
[2020-04-08] MEDS: MELATONIN 5 MG TABLET PO PRN (22:01)
[2020-04-09] MEDS: DEXAMETHASONE SOD PHOSPHATE INJ 4 MG/1 ML VIAL IV SCH ×3 (03:37→21:25)
[2020-04-09 03:41] LABS: HEMATOCRIT 25.1 % (37.9-51.0); HEMOGLOBIN 8.4 g/dL (13.5-17.0); MEAN CORPUSCULAR HEMOGLOBIN 22.3 pg (27.0-33.4); MEAN CORPUSCULAR HGB CONC 33.3 g/dL (32.0-36.0); MEAN CORPUSCULAR VOLUME 67 fl (80-97); PLATELET COUNT 175 10^3/uL (150-450); RED BLOOD COUNT 3.75 10^6/uL (4.35-5.55); RED CELL DISTRIBUTION WIDTH 19.1 % (11.5-14.0); WHITE BLOOD COUNT 2.1 10^3/uL (4.0-10.5)
[2020-04-09 03:44] LABS: INTERNATIONAL RATION (INR) 1.41; PROTHROMBIN TIME 17.4 SEC (11.4-15.4)
[2020-04-09 04:13] LABS: ALBUMIN 2.7 g/dL (3.5-5.0); ALKALINE PHOSPHATASE 309 U/L (38-126); ANION GAP 6 (5-19); ASPARTATE AMINO TRANSFERASE 132 U/L (17-59); BILIRUBIN,TOTAL 0.5 mg/dL (0.2-1.3); BLOOD UREA NITROGEN 14 mg/dL (7-20); CARBON DIOXIDE 22 mmol/L (22-30); CHLORIDE 107 mmol/L (98-107); GLUCOSE 122 mg/dL (75-110); POTASSIUM 4.6 mmol/L (3.6-5.0); TOTAL PROTEIN 5.6 g/dL (6.3-8.2)
[2020-04-09] MEDS: HEPARIN SOD (PORCINE) 5,000 UNIT/ML 1 ML VIAL SUBCUT SCH ×3 (05:47→21:25)
[2020-04-09] MEDS: ALBUTEROL SULFATE HFA (90 MCG/PUFF) 200 PUFF/8.5 GM MDI IH SCH ×4 (05:47→17:04)
[2020-04-09] MEDS: ENALAPRIL MALEATE 2.5 MG TABLET PO SCH (09:29)
[2020-04-09] MEDS: CLOPIDOGREL BISULFATE 75 MG TABLET PO SCH (09:29)
[2020-04-09] MEDS: ZINC SULFATE 220 MG CAPSULE PO SCH (09:29)
[2020-04-09] MEDS: CITALOPRAM HYDROBROMIDE 20 MG TABLET PO SCH (09:30)
[2020-04-09] MEDS: DOCUSATE SODIUM 100 MG CAPSULE PO SCH ×2 (09:30→17:04)
[2020-04-09] MEDS: CHOLECALCIFEROL (D3) 1,000 UNIT (25 MCG) TABLET PO SCH (09:30)
[2020-04-09] MEDS: ASCORBIC ACID 500 MG TABLET PO SCH (09:30)
[2020-04-09] MEDS: FAMOTIDINE 20 MG TABLET PO SCH ×2 (09:30→17:04)
[2020-04-09] MEDS: RINGERS SOLUTION,LACTATED 1,000 ML IV PRN (10:11)
--- NOTE | 2020-04-09 19:25 | PDOC PROGRESS REPORT ---
Subjective Progress Note for:: 04/09/20 Subjective:: Due to patient being COVID-19 Suspected/Positive, encounter was conducted using telephone and/or videochat and does not include a detailed in-person physical exam in order to preserve PPE and limit staff exposure to a dangerous pathogen. Patient is still quite short of breath today requiring high flow nasal cannula. I had a long discussion with his nurse today regarding his respiratory status and it seems that patient has finally stabilized on his current high flow nasal cannula settings. If he continues to worsen, we may need to reevaluate him for ICU level care. We will continue to monitor in the short-term for now. CTX/Azithro will be continued. He notes improvement today, but still SOB. Reason For Visit: COVID-19 PNEUMONIA,ACUTE RESPIRATORY FAILURE WITH Physical Exam Vital Signs: Temp Pulse Resp BP Pulse Ox 97.6 F 58 L 18 129/61 H 98 04/09/20 15:24 04/09/20 15:24 04/09/20 15:24 04/09/20 15:24 04/09/20 15:31 Intake & Output 04/08/20 04/09/20 04/10/20 06:59 06:59 06:59 Intake Total 150 4192 225 Output Total 800 Balance 150 4192 -575 Weight 80 kg 80 kg General appearance: PRESENT: no acute distress - Due to patient being COVID-19 Suspected/Positive, encounter was conducted using telephone and/or videochat and does not include a detailed in-person physical exam in order to preserve PPE and limit staff exposure to a dangerous pathogen., well-developed, well-nourished Head exam: PRESENT: atraumatic, normocephalic Eye exam: PRESENT: conjunctiva pink, EOMI, PERRLA. ABSENT: scleral icterus Ear exam: PRESENT: normal external ear exam Mouth exam: PRESENT: moist, tongue midline Neck exam: ABSENT: carotid bruit, JVD, lymphadenopathy, thyromegaly Respiratory exam: PRESENT: clear to auscultation moni. ABSENT: rales, rhonchi, wheezes Cardiovascular exam: PRESENT: RRR. ABSENT: diastolic murmur, rubs, systolic murmur Pulses: PRESENT: normal dorsalis pedis pul Vascular exam: PRESENT: normal capillary refill GI/Abdominal exam: PRESENT: normal bowel sounds, soft. ABSENT: distended, guarding, mass, organolmegaly, rebound, tenderness Rectal exam: PRESENT: deferred Extremities exam: PRESENT: full ROM. ABSENT: calf tenderness, clubbing, pedal edema Neurological exam: PRESENT: alert, awake, oriented to person, oriented to place, oriented to time, oriented to situation, CN II-XII grossly intact. ABSENT: motor sensory deficit Psychiatric exam: PRESENT: appropriate affect, normal mood. ABSENT: homicidal ideation, suicidal ideation Skin exam: PRESENT: dry, intact, warm. ABSENT: cyanosis, rash Results Laboratory Results: 04/09/20 03:15 04/09/20 03:15 04/09/20 04/09/20 03:15 03:15 WBC 2.1 L RBC 3.75 L Hgb 8.4 L Hct 25.1 L MCV 67 L MCH 22.3 L MCHC 33.3 RDW 19.1 H Plt Count 175 Sodium 135.2 L Potassium 4.6 Chloride 107 Carbon Dioxide 22 Anion Gap 6 BUN 14 Creatinine 0.95 Est GFR ( Amer) > 60 Glucose 122 H Calcium 8.0 L Magnesium 2.3 Total Bilirubin 0.5 AST 132 H Alkaline Phosphatase 309 H Total Protein 5.6 L Albumin 2.7 L 04/07/20 04/07/20 15:40 15:40 Creatine Kinase 77 CK-MB (CK-2) 1.57 Troponin I 0.015 Impressions: Chest X-Ray 04/07/20 15:36 IMPRESSION: Cannot exclude a limited left lower lobe pneumonia. Assessment and Plan - Diagnosis (1) Pneumonia due to COVID-19 virus Is this a current diagnosis for this admission?: Yes Plan: Tested positive for COVID-19 on 03/27/2020 outpatient at PCPs office. Continue azithromycin/ceftriaxone for likely post viral bacterial infection Continue zinc supplements, vitamin C, vitamin D supplements as well as dexamethasone per current guidelines (2) Acute respiratory failure with hypoxia Is this a current diagnosis for this admission?: Yes Plan: Secondary to COVID-19. Currently on 6 L nasal cannula with SPO2 in the mid to low 90s. Worsened after that and was put on high flow nasal cannula, stabilized thereafter Continue dexamethasone Watch closely for further deterioration as he may need ICU level care if this o ccurs (3) Anemia secondary to renal failure Is this a current diagnosis for this admission?: Yes (4) Chronic kidney disease (CKD), stage III (moderate) Is this a current diagnosis for this admission?: Yes (5) COVID-19 Is this a current diagnosis for this admission?: Yes (6) Coronary artery disease Qualifiers: Coronary Disease-Associated Artery/Lesion type: [place] artery [place] vs. transplanted heart: [place] heart Associated angina: without angina Qualified Code(s): I25.10 - Atherosclerotic heart disease of [place] coronary artery without angina pectoris Is this a current diagnosis for this admission?: Yes (7) Elevated liver function tests Is this a current diagnosis for this admission?: Yes Plan: Likely secondary to viral infection accompanied by leukopenia. Notably transaminases were normal in 08/2019, improving here (8) Hypertension Qualifiers: Hypertension type: essential hypertension Qualified Code(s): I10 - Essential (primary) hypertension Is this a current diagnosis for this admission?: Yes Plan: Controlled, continue enalapril (9) Hyponatremia Is this a current diagnosis for this admission?: Yes (10) Leukopenia Qualifiers: Leukopenia type: unspecified Qualified Code(s): D72.819 - Decreased white blood cell count, unspecified Is this a current diagnosis for this admission?: Yes (11) Pneumonia Qualifiers: Pneumonia type: due to unspecified organism Laterality: left Lung location: lower lobe of lung Qualified Code(s): J18.9 - Pneumonia, unspecified organism Is this a current diagnosis for this admission?: Yes - Time Time Spent with patient: 15-24 minutes Medications reviewed and adjusted accordingly: Yes - Inpatient Certification Based on my medical assessment, after consideration of the patient's comorbidities, presenting symptoms, or acuity I expect that the services needed warrant INPATIENT care.: Yes I certify that my determination is in accordance with my understanding of Medicare's requirements for reasonable and necessary INPATIENT services [42 CFR 412.3e].: Yes Medical Necessity: Significant Comorbidiites Make Outpatient Treatment Too Risky, Need Close Monitoring Due to Risk of Patient Decompensation, Need for IV Antibiotics, Risk of Complication if Not Cared For in Hospital, Risk of Diagnosis Which Will Require Inpatient Eval/Care/Monitoring
[2020-04-09] MEDS: AZITHROMYCIN 500 MG in DEXTROSE 5%-WATER 250 ML IV SCH (21:26)
[2020-04-09] MEDS: CEFTRIAXONE 1 GM/D5W RTU 1 GM/50 ML RTUPB IV SCH (21:26)
[2020-04-09] MEDS: ATORVASTATIN CALCIUM 40 MG TABLET PO SCH (22:30)
[2020-04-09] MEDS ORDERED: TEMAZEPAM 15 MG CAPSULE PO ONE (23:00)
[2020-04-09] MEDS ORDERED: NAPROXEN 250 MG TABLET ONE (23:09)
[2020-04-09] MEDS: MELATONIN 5 MG TABLET PO PRN (23:17)
[2020-04-09] MEDS: NAPROXEN 250 MG TABLET PO PRN (23:18)
[2020-04-10] MEDS ORDERED: HALOPERIDOL LACTATE INJ 5 MG/1 ML VIAL ONE (02:27)
[2020-04-10] MEDS: HALOPERIDOL LACTATE INJ 5 MG/1 ML VIAL IV PRN ×3 (03:00→20:45)
[2020-04-10] MEDS: DEXAMETHASONE SOD PHOSPHATE INJ 4 MG/1 ML VIAL IV SCH ×3 (04:41→20:45)
[2020-04-10] MEDS: ALBUTEROL SULFATE HFA (90 MCG/PUFF) 200 PUFF/8.5 GM MDI IH SCH ×4 (06:22→17:50)
[2020-04-10] MEDS: HEPARIN SOD (PORCINE) 5,000 UNIT/ML 1 ML VIAL SUBCUT SCH ×2 (06:22→13:27)
[2020-04-10] MEDS: ALPRAZOLAM 0.5 MG TABLET PO PRN ×2 (06:22→20:30)
[2020-04-10 07:01] LABS: HEMATOCRIT 23.9 % (37.9-51.0); MEAN CORPUSCULAR HEMOGLOBIN 22.3 pg (27.0-33.4); MEAN CORPUSCULAR HGB CONC 33.2 g/dL (32.0-36.0); MEAN CORPUSCULAR VOLUME 67 fl (80-97); PLATELET COUNT 242 10^3/uL (150-450); RED BLOOD COUNT 3.55 10^6/uL (4.35-5.55); RED CELL DISTRIBUTION WIDTH 19.5 % (11.5-14.0)
[2020-04-10 07:16] LABS: WHITE BLOOD COUNT 9.9 10^3/uL (4.0-10.5)
[2020-04-10 07:18] LABS: HEMOGLOBIN 7.9 g/dL (13.5-17.0)
[2020-04-10 07:26] LABS: ALBUMIN 2.6 g/dL (3.5-5.0); ALKALINE PHOSPHATASE 250 U/L (38-126); ASPARTATE AMINO TRANSFERASE 91 U/L (17-59); BILIRUBIN,TOTAL 0.6 mg/dL (0.2-1.3); BLOOD UREA NITROGEN 18 mg/dL (7-20); CALCIUM 8.1 mg/dL (8.4-10.2); CARBON DIOXIDE 22 mmol/L (22-30); CHLORIDE 108 mmol/L (98-107); GLUCOSE 118 mg/dL (75-110); POTASSIUM 5.1 mmol/L (3.6-5.0); TOTAL PROTEIN 5.5 g/dL (6.3-8.2)
[2020-04-10 07:29] LABS: ANION GAP 4 (5-19)
[2020-04-10 07:51] LABS: INTERNATIONAL RATION (INR) 1.62; PROTHROMBIN TIME 19.4 SEC (11.4-15.4)
[2020-04-10] MEDS: CHOLECALCIFEROL (D3) 1,000 UNIT (25 MCG) TABLET PO SCH (09:30)
[2020-04-10] MEDS: DOCUSATE SODIUM 100 MG CAPSULE PO SCH ×2 (09:30→17:50)
[2020-04-10] MEDS: CLOPIDOGREL BISULFATE 75 MG TABLET PO SCH (09:30)
[2020-04-10] MEDS: ZINC SULFATE 220 MG CAPSULE PO SCH (09:31)
[2020-04-10] MEDS: FAMOTIDINE 20 MG TABLET PO SCH ×2 (09:31→17:50)
[2020-04-10] MEDS: CITALOPRAM HYDROBROMIDE 20 MG TABLET PO SCH (09:31)
[2020-04-10] MEDS: ENALAPRIL MALEATE 2.5 MG TABLET PO SCH (09:31)
[2020-04-10] MEDS: ASCORBIC ACID 500 MG TABLET PO SCH (09:31)
[2020-04-10] MEDS: MULTIVITAMIN TABLET PO SCH (11:43)
--- NOTE | 2020-04-10 19:24 | PDOC PROGRESS REPORT ---
Subjective Progress Note for:: 04/10/20 Subjective:: Due to patient being COVID-19 Suspected/Positive, encounter was conducted using telephone and/or videochat and does not include a detailed in-person physical exam in order to preserve PPE and limit staff exposure to a dangerous pathogen. 04/09/2020 Patient is still quite short of breath today requiring high flow nasal cannula. I had a long discussion with his nurse today regarding his respiratory status and it seems that patient has finally stabilized on his current high flow nasal cannula settings. If he continues to worsen, we may need to reevaluate him for ICU level care. We will continue to monitor in the short-term for now. CTX/Azithro will be continued. He notes improvement today, but still SOB. 04/10/2020 Patient seems to be doing better today, weaning high flow nasal cannula oxygen requirements as able. He states he has bit of a cough but this is mild. He also had an episode of diarrhea but this has not recurred. INR and potassium are rising, continue to monitor with BMP daily. His WBC is risen abruptly at 9.9 though he is not clinically declined today at all. LFTs continue to drop. Blood cultures remain negative. He has no new complaints today. I had an extensive discussion with him during our phone encounter today and answered all of his questions to completion. Reason For Visit: COVID-19 PNEUMONIA,ACUTE RESPIRATORY FAILURE WITH Physical Exam Vital Signs: Temp Pulse Resp BP Pulse Ox 97.3 F 64 20 121/60 91 L 04/10/20 14:59 04/10/20 14:59 04/10/20 16:57 04/10/20 14:59 04/10/20 16:57 Intake & Output 04/09/20 04/10/20 04/11/20 06:59 06:59 06:59 Intake Total 4192 2085 720 Output Total 1100 300 Balance 4192 985 420 Weight 80 kg 80 kg General appearance: PRESENT: other - Due to patient being COVID-19 Suspected/Positive, encounter was conducted using telephone and/or videochat and does not include a detailed in-person physical exam in order to preserve PPE and limit staff exposure to a dangerous pathogen. Results Laboratory Results: 04/10/20 06:30 04/10/20 06:30 04/10/20 04/10/20 06:30 06:30 WBC 9.9 D RBC 3.55 L Hgb 7.9 L Hct 23.9 L MCV 67 L MCH 22.3 L MCHC 33.2 RDW 19.5 H Plt Count 242 Sodium 134.4 L Potassium 5.1 H Chloride 108 H Carbon Dioxide 22 Anion Gap 4 L BUN 18 Creatinine 0.95 Est GFR ( Amer) > 60 Glucose 118 H Calcium 8.1 L Magnesium 2.3 Total Bilirubin 0.6 AST 91 H Alkaline Phosphatase 250 H Total Protein 5.5 L Albumin 2.6 L 04/07/20 04/07/20 15:40 15:40 Creatine Kinase 77 CK-MB (CK-2) 1.57 Troponin I 0.015 Impressions: Chest X-Ray 04/07/20 15:36 IMPRESSION: Cannot exclude a limited left lower lobe pneumonia. Assessment and Plan - Diagnosis (1) Pneumonia due to COVID-19 virus Is this a current diagnosis for this admission?: Yes Plan: Tested positive for COVID-19 on 03/27/2020 outpatient at PCPs office. Continue azithromycin/ceftriaxone for likely post viral bacterial infection Continue zinc supplements, vitamin C, vitamin D supplements as well as dexamethasone per current guidelines Gradually improving, wean high flow nasal cannula oxygen requirements as able (2) Acute respiratory failure with hypoxia Is this a current diagnosis for this admission?: Yes Plan: Secondary to COVID-19. Currently on 6 L nasal cannula with SPO2 in the mid to low 90s. Worsened after that and was put on high flow nasal cannula, stabilized thereafter, requiring 40% consistently and comfortably Continue dexamethasone Watch closely for further deterioration as he may need ICU level care if this occurs (3) Anemia secondary to renal failure Is this a current diagnosis for this admission?: Yes (4) Chronic kidney disease (CKD), stage III (moderate) Is this a current diagnosis for this admission?: Yes (5) COVID-19 Is this a current diagnosis for this admission?: Yes (6) Coronary artery disease Qualifiers: Coronary Disease-Associated Artery/Lesion type: [place] artery [place] vs. transplanted heart: [place] heart Associated angina: without angina Qualified Code(s): I25.10 - Atherosclerotic heart disease of [place] coronary artery without angina pectoris Is this a current diagnosis for this admission?: Yes (7) Elevated liver function tests Is this a current diagnosis for this admission?: Yes (8) Hypertension Qualifiers: Hypertension type: essential hypertension Qualified Code(s): I10 - Essential (primary) hypertension Is this a current diagnosis for this admission?: Yes (9) Hyponatremia Is this a current diagnosis for this admission?: Yes (10) Leukopenia Qualifiers: Leukopenia type: unspecified Qualified Code(s): D72.819 - Decreased white blood cell count, unspecified Is this a current diagnosis for this admission?: Yes (11) Pneumonia Qualifiers: Pneumonia type: due to unspecified organism Laterality: left Lung location: lower lobe of lung Qualified Code(s): J18.9 - Pneumonia, unspecified organism Is this a current diagnosis for this admission?: Yes - Time Time Spent with patient: 25-34 minutes Medications reviewed and adjusted accordingly: Yes - Inpatient Certification Based on my medical assessment, after consideration of the patient's comorbidities, presenting symptoms, or acuity I expect that the services needed warrant INPATIENT care.: Yes I certify that my determination is in accordance with my understanding of Medicare's requirements for reasonable and necessary INPATIENT services [42 CFR 412.3e].: Yes Medical Necessity: Significant Comorbidiites Make Outpatient Treatment Too Risky, Need Close Monitoring Due to Risk of Patient Decompensation, Risk of Complication if Not Cared For in Hospital, Risk of Diagnosis Which Will Require Inpatient Eval/Care/Monitoring
[2020-04-10] MEDS: ATORVASTATIN CALCIUM 40 MG TABLET PO SCH (21:11)
[2020-04-10] MEDS: RINGERS SOLUTION,LACTATED 1,000 ML IV PRN (21:13)
[2020-04-10] MEDS: LORAZEPAM INJ 2 MG/1 ML VIAL IV PRN (21:15)
[2020-04-10] MEDS: CEFTRIAXONE 1 GM/D5W RTU 1 GM/50 ML RTUPB IV SCH (21:16)
[2020-04-10] MEDS: AZITHROMYCIN 500 MG in DEXTROSE 5%-WATER 250 ML IV SCH (21:18)
[2020-04-10] MEDS: TEMAZEPAM 15 MG CAPSULE PO SCH (21:22)
[2020-04-10 21:49] LABS: ARTERIAL BLOOD BASE EXCESS -0.1 mmol/L; ARTERIAL BLOOD FIO2 40%; ARTERIAL BLOOD H2CO3 0.87 mmol/L (1.05-1.35); ARTERIAL BLOOD HCO3 22.5 mmol/L (20-24); ARTERIAL BLOOD O2 SATURATION 92.3 % (94-98); ARTERIAL BLOOD PH 7.51 (7.35-7.45); ARTERIAL BLOOD PO2 56.4 mmHg (80-100); ARTERIAL BLOOD TOTAL CO2 23.4 mmol/L (23-27)
[2020-04-11] MEDS: HEPARIN SOD (PORCINE) 5,000 UNIT/ML 1 ML VIAL SUBCUT SCH ×4 (00:13→23:41)
[2020-04-11] MEDS: ALBUTEROL SULFATE HFA (90 MCG/PUFF) 200 PUFF/8.5 GM MDI IH SCH ×4 (00:14→17:25)
[2020-04-11] MEDS ORDERED: TAMSULOSIN HCL 0.4 MG CAP.SR.24H PO ONE (03:00)
[2020-04-11 03:44] LABS: HEMATOCRIT 23.8 % (37.9-51.0); MEAN CORPUSCULAR HEMOGLOBIN 21.8 pg (27.0-33.4); MEAN CORPUSCULAR HGB CONC 32.5 g/dL (32.0-36.0); MEAN CORPUSCULAR VOLUME 67 fl (80-97); PLATELET COUNT 276 10^3/uL (150-450); RED BLOOD COUNT 3.54 10^6/uL (4.35-5.55); RED CELL DISTRIBUTION WIDTH 19.3 % (11.5-14.0); WHITE BLOOD COUNT 9.1 10^3/uL (4.0-10.5)
[2020-04-11 03:49] LABS: HEMOGLOBIN 7.7 g/dL (13.5-17.0)
[2020-04-11] MEDS: LORAZEPAM INJ 2 MG/1 ML VIAL IV PRN (04:00)
[2020-04-11] MEDS: DEXAMETHASONE SOD PHOSPHATE INJ 4 MG/1 ML VIAL IV SCH ×3 (04:00→21:00)
[2020-04-11 04:02] LABS: INTERNATIONAL RATION (INR) 1.63; PROTHROMBIN TIME 19.5 SEC (11.4-15.4)
[2020-04-11] MEDS ORDERED: ALBUTEROL SULFATE 0.083% NEB 2.5 MG/3 ML AMPUL NEB ONE (08:45)
--- NOTE | 2020-04-11 08:58 | RADIOLOGY REPORT (SQ) ---
EXAM DESCRIPTION: CHEST SINGLE VIEW IMAGES COMPLETED DATE/TIME: 04/11/2020 8:48 am REASON FOR STUDY: Increasing dyspnea COMPARISON: 04/07/2020 NUMBER OF VIEWS: One view. TECHNIQUE: Single frontal radiographic image of the chest acquired. LIMITATIONS: None. FINDINGS: LUNGS AND PLEURA: Bilateral airspace disease with relative sparing of the left upper lobe not significantly changed. There is a background of emphysema. No pneumothorax. MEDIASTINUM AND HILAR STRUCTURES: Stable heart size and mediastinal structures. HEART AND VASCULAR STRUCTURES: Stable appearance. BONES: No acute findings. HARDWARE: None in the chest. OTHER: No other significant finding. IMPRESSION: No significant change. TECHNICAL DOCUMENTATION: JOB ID: [id number] 2010 [employer]- All Rights Reserved Reading location - IP/workstation name: SHA
--- NOTE | 2020-04-11 09:20 | PDOC PROGRESS REPORT ---
Subjective Progress Note for:: 04/11/20 Subjective:: Due to patient being COVID-19 Suspected/Positive, encounter was conducted using telephone and/or videochat and does not include a detailed in-person physical exam in order to preserve PPE and limit staff exposure to a dangerous pathogen. 04/09/2020 Patient is still quite short of breath today requiring high flow nasal cannula. I had a long discussion with his nurse today regarding his respiratory status and it seems that patient has finally stabilized on his current high flow nasal cannula settings. If he continues to worsen, we may need to reevaluate him for ICU level care. We will continue to monitor in the short-term for now. CTX/Azithro will be continued. He notes improvement today, but still SOB. 04/10/2020 Patient seems to be doing better today, weaning high flow nasal cannula oxygen requirements as able. He states he has bit of a cough but this is mild. He also had an episode of diarrhea but this has not recurred. INR and potassium are rising, continue to monitor with BMP daily. His WBC is risen abruptly at 9.9 though he is not clinically declined today at all. LFTs continue to drop. Blood cultures remain negative. He has no new complaints today. I had an extensive discussion with him during our phone encounter today and answered all of his questions to completion. 04/11/2020 Per my discussion with the office rental clerk, patient had some acute confusion overnight but was redirectable and his oxygen requirement was increased, thereafter seemed to improve. I was called by nursing this morning regarding the patient's continued acute decline despite escalation of NIV to BiPAP rather than high flow nasal cannula and despite increase FiO2 to 100%. Patient is still having desaturations to the 70s and 80s. I have called Dr. Shea in critical care and discussed the case in detail with him. He is in agreement that the patient requires ICU level care and he is accepted the patient to his service. The patient as of this morning has decided he would like to be intubated despite the chart indicating he had previously wanted to be DNR/DNI. Dr. Shea anticipates the patient will need to be intubated and prefers this be done in ICU in a controlled setting with the appropriate customer support technician in attendance. I discussed this plan with nursing and they are in agreement with this, planning to back the patient on his way down. Per RN, patient is currently still alert and talking, appears to be relatively stable for trans portation to ICU. I have added some additional lab orders to assist with the monitoring of the patient's decline. We will need to take appropriate measures to transport the patient safely in order to contain the highly infectious virus that the patient currently has. Reason For Visit: COVID-19 PNEUMONIA,ACUTE RESPIRATORY FAILURE WITH Physical Exam Vital Signs: Temp Pulse Resp BP Pulse Ox 97.8 F 56 L 22 H 137/53 H 99 04/11/20 03:35 04/11/20 03:35 04/11/20 03:35 04/11/20 03:35 04/11/20 04:00 Intake & Output 04/10/20 04/11/20 04/12/20 06:59 06:59 06:59 Intake Total 2085 1140 1000 Output Total 1100 300 Balance 122 330 6668 Weight 78.9 kg General appearance: PRESENT: other - Due to patient being COVID-19 Suspected/Positive, encounter was conducted using telephone and/or videochat and does not include a detailed in-person physical exam in order to preserve PPE and limit staff exposure to a dangerous pathogen. Results Laboratory Results: 04/11/20 03:25 04/10/20 06:30 04/10/20 04/11/20 04/11/20 20:45 03:25 03:25 WBC 9.1 RBC 3.54 L Hgb 7.7 L Hct 23.8 L MCV 67 L MCH 21.8 L MCHC 32.5 RDW 19.3 H Plt Count 276 Carbonic Acid 0.87 L HCO3/H2CO3 Ratio 25:1 ABG pH 7.51 H ABG pCO2 29.0 L ABG pO2 56.4 L ABG HCO3 22.5 ABG O2 Saturation 92.3 L ABG Base Excess -0.1 FiO2 40% Magnesium 2.3 04/07/20 04/07/20 15:40 15:40 Creatine Kinase 77 CK-MB (CK-2) 1.57 Troponin I 0.015 Impressions: Chest X-Ray 04/10/20 00:00 IMPRESSION: No significant change. Assessment and Plan - Diagnosis (1) Pneumonia due to COVID-19 virus Is this a current diagnosis for this admission?: Yes Plan: Tested positive for COVID-19 on 03/27/2020 outpatient at PCPs office. Continue azithromycin/ceftriaxone for likely post viral bacterial infection Continue zinc supplements, vitamin C, vitamin D supplements as well as dexamethasone per current guidelines Gradually improving, wean high flow nasal cannula oxygen requirements as able 04/11/2020 Acute decline respiratory status requiring BiPAP and 100% FiO2: Transferred to ICU under the care of Dr. Shea (2) Acute respiratory failure with hypoxia Is this a current diagnosis for this admission?: Yes Plan: Secondary to COVID-19. Currently on 6 L nasal cannula with SPO2 in the mid to low 90s. Worsened after that and was put on high flow nasal cannula, stabilized thereafter, requiring 40% consistently and comfortably Continue dexamethasone Watch closely for further deterioration as he may need ICU level care if this occurs 04/11/2020 Acute decline in respiratory status most likely will require intubation, transferred to ICU. Patient now requests to be intubated if it is indicated (3) Anemia secondary to renal failure Is this a current diagnosis for this admission?: Yes (4) Chronic kidney disease (CKD), stage III (moderate) Is this a current diagnosis for this admission?: Yes (5) COVID-19 Is this a current diagnosis for this admission?: Yes (6) Coronary artery disease Qualifiers: Coronary Disease-Associated Artery/Lesion type: [place] artery [place] vs. transplanted heart: [place] heart Associated angina: without angina Qualified Code(s): I25.10 - Atherosclerotic heart disease of [place] coronary artery without angina pectoris Is this a current diagnosis for this admission?: Yes (7) Elevated liver function tests Is this a current diagnosis for this admission?: Yes (8) Hypertension Qualifiers: Hypertension type: essential hypertension Qualified Code(s): I10 - Essential (primary) hypertension Is this a current diagnosis for this admission?: Yes (9) Hyponatremia Is this a current diagnosis for this admission?: Yes (10) Leukopenia Qualifiers: Leukopenia type: unspecified Qualified Code(s): D72.819 - Decreased white blood cell count, unspecified Is this a current diagnosis for this admission?: Yes (11) Pneumonia Qualifiers: Pneumonia type: due to unspecified organism Laterality: left Lung location: lower lobe of lung Qualified Code(s): J18.9 - Pneumonia, unspecified organism Is this a current diagnosis for this admission?: Yes - Time Time Spent with patient: 35 or more minutes Medications reviewed and adjusted accordingly: Yes - Inpatient Certification Based on my medical assessment, after consideration of the patient's comorbidities, presenting symptoms, or acuity I expect that the services needed warrant INPATIENT care.: Yes I certify that my determination is in accordance with my understanding of Medicare's requirements for reasonable and necessary INPATIENT services [42 CFR 412.3e].: Yes Medical Necessity: Significant Comorbidiites Make Outpatient Treatment Too Risky, Need Close Monitoring Due to Risk of Patient Decompensation, Need for Nebulizer Therapy and Monitoring of Response, Risk of Complication if Not Cared For in Hospital, Risk of Diagnosis Which Will Require Inpatient Julee l/Care/Monitoring
[2020-04-11 09:51] LABS: BLOOD UREA NITROGEN 21 mg/dL (7-20); CALCIUM 8.1 mg/dL (8.4-10.2); GLUCOSE 110 mg/dL (75-110)
[2020-04-11 09:56] LABS: CARBON DIOXIDE 24 mmol/L (22-30); CHLORIDE 108 mmol/L (98-107)
[2020-04-11] MEDS: CITALOPRAM HYDROBROMIDE 20 MG TABLET PO SCH (09:59)
[2020-04-11] MEDS: DOCUSATE SODIUM 100 MG CAPSULE PO SCH ×2 (09:59→17:23)
[2020-04-11] MEDS: CHOLECALCIFEROL (D3) 1,000 UNIT (25 MCG) TABLET PO SCH (09:59)
[2020-04-11] MEDS: CLOPIDOGREL BISULFATE 75 MG TABLET PO SCH (09:59)
[2020-04-11] MEDS: ZINC SULFATE 220 MG CAPSULE PO SCH (09:59)
[2020-04-11] MEDS: FAMOTIDINE 20 MG TABLET PO SCH ×2 (09:59→17:24)
[2020-04-11] MEDS: MULTIVITAMIN TABLET PO SCH (09:59)
[2020-04-11] MEDS: ASCORBIC ACID 500 MG TABLET PO SCH (09:59)
[2020-04-11 10:00] LABS: ANION GAP 4 (5-19)
[2020-04-11] MEDS: ENALAPRIL MALEATE 2.5 MG TABLET PO SCH (10:00)
[2020-04-11 11:17] LABS: ABSOLUTE LYMPHOCYTES (AUTO) 0.5 10^3/uL (0.5-4.7); ABSOLUTE MONOCYTES (AUTO) 0.9 10^3/uL (0.1-1.4); ABSOLUTE NEUT (AUTO) 6.9 10^3/uL (1.7-8.2); BASOPHILS % (AUTO) 0.3 % (0-2); HEMATOCRIT 25.3 % (37.9-51.0); HEMOGLOBIN 8.1 g/dL (13.5-17.0); LYMPHOCYTES % (AUTO) 6.4 % (13-45); MEAN CORPUSCULAR HEMOGLOBIN 21.8 pg (27.0-33.4); MEAN CORPUSCULAR HGB CONC 32.1 g/dL (32.0-36.0); MEAN CORPUSCULAR VOLUME 68 fl (80-97); MONOCYTES % (AUTO) 10.4 % (3-13); PLATELET COUNT 282 10^3/uL (150-450); RED BLOOD COUNT 3.72 10^6/uL (4.35-5.55); RED CELL DISTRIBUTION WIDTH 19.3 % (11.5-14.0); SEGMENTED NEUTROPHILS % (AUTO) 82.9 % (42-78); TOTAL CELLS COUNTED % (AUTO) 100 %; WHITE BLOOD COUNT 8.4 10^3/uL (4.0-10.5)
[2020-04-11] MEDS: TAMSULOSIN HCL 0.4 MG CAP.SR.24H PO SCH (17:23)
--- NOTE | 2020-04-11 18:41 | Progress Note ---
Provider Note Provider Note: Had another lengthy discussion with Dr. Shea after my previous progress note this morning and after he discussed the case with the respiratory therapist, he preferred that the patient be monitored on the floor throughout today and reassess him for ICU transfer. The patient began responding to BiPAP 100% oxygen after some time today and appears to have somewhat stabilized. I did have a video encounter with the patient this afternoon and he seemed to be more comfortable than this morning. If he acutely declines overnight we will need to reassess his transfer to ICU.
[2020-04-11] MEDS: AZITHROMYCIN 500 MG in DEXTROSE 5%-WATER 250 ML IV SCH (23:00)
[2020-04-11] MEDS: CEFTRIAXONE 1 GM/D5W RTU 1 GM/50 ML RTUPB IV SCH (23:00)
[2020-04-11] MEDS: TEMAZEPAM 15 MG CAPSULE PO SCH (23:00)
[2020-04-11] MEDS: ATORVASTATIN CALCIUM 40 MG TABLET PO SCH (23:00)
[2020-04-12] MEDS: ALBUTEROL SULFATE HFA (90 MCG/PUFF) 200 PUFF/8.5 GM MDI IH SCH ×4 (00:35→17:56)
[2020-04-12 03:19] LABS: ABSOLUTE LYMPHOCYTES (AUTO) 0.5 10^3/uL (0.5-4.7); ABSOLUTE NEUT (AUTO) 7.4 10^3/uL (1.7-8.2); BASOPHILS % (AUTO) 0.2 % (0-2); HEMATOCRIT 26.6 % (37.9-51.0); HEMOGLOBIN 8.6 g/dL (13.5-17.0); LYMPHOCYTES % (AUTO) 5.2 % (13-45); MEAN CORPUSCULAR HGB CONC 32.5 g/dL (32.0-36.0); MEAN CORPUSCULAR VOLUME 68 fl (80-97); MONOCYTES % (AUTO) 10.9 % (3-13); PLATELET COUNT 258 10^3/uL (150-450); RED BLOOD COUNT 3.93 10^6/uL (4.35-5.55); RED CELL DISTRIBUTION WIDTH 19.2 % (11.5-14.0); SEGMENTED NEUTROPHILS % (AUTO) 83.7 % (42-78); TOTAL CELLS COUNTED % (AUTO) 100 %; WHITE BLOOD COUNT 8.8 10^3/uL (4.0-10.5)
[2020-04-12 03:26] LABS: INTERNATIONAL RATION (INR) 1.83; PROTHROMBIN TIME 21.4 SEC (11.4-15.4)
[2020-04-12 03:50] LABS: ANION GAP 6 (5-19); BLOOD UREA NITROGEN 24 mg/dL (7-20); CALCIUM 8.2 mg/dL (8.4-10.2); CARBON DIOXIDE 23 mmol/L (22-30); CHLORIDE 108 mmol/L (98-107); GLUCOSE 117 mg/dL (75-110); POTASSIUM 4.6 mmol/L (3.6-5.0)
[2020-04-12] MEDS: DEXAMETHASONE SOD PHOSPHATE INJ 4 MG/1 ML VIAL IV SCH ×3 (04:00→23:17)
[2020-04-12] MEDS: HEPARIN SOD (PORCINE) 5,000 UNIT/ML 1 ML VIAL SUBCUT SCH ×3 (06:40→23:20)
[2020-04-12] MEDS: ZINC SULFATE 220 MG CAPSULE PO SCH (10:52)
[2020-04-12] MEDS: CHOLECALCIFEROL (D3) 1,000 UNIT (25 MCG) TABLET PO SCH (10:52)
[2020-04-12] MEDS: MULTIVITAMIN TABLET PO SCH (10:53)
[2020-04-12] MEDS: CLOPIDOGREL BISULFATE 75 MG TABLET PO SCH (10:53)
[2020-04-12] MEDS: ASCORBIC ACID 500 MG TABLET PO SCH (10:53)
[2020-04-12] MEDS: DOCUSATE SODIUM 100 MG CAPSULE PO SCH ×2 (10:53→17:56)
[2020-04-12] MEDS: ENALAPRIL MALEATE 2.5 MG TABLET PO SCH (10:53)
[2020-04-12] MEDS: CITALOPRAM HYDROBROMIDE 20 MG TABLET PO SCH (10:53)
[2020-04-12] MEDS: FAMOTIDINE 20 MG TABLET PO SCH ×2 (10:53→17:56)
[2020-04-12] MEDS: TAMSULOSIN HCL 0.4 MG CAP.SR.24H PO SCH (17:56)
--- NOTE | 2020-04-12 19:11 | PDOC PROGRESS REPORT ---
Subjective Progress Note for:: 04/12/20 Subjective:: Due to patient being COVID-19 Suspected/Positive, encounter was conducted using telephone and/or videochat and does not include a detailed in-person physical exam in order to preserve PPE and limit staff exposure to a dangerous pathogen. 04/09/2020 Patient is still quite short of breath today requiring high flow nasal cannula. I had a long discussion with his nurse today regarding his respiratory status and it seems that patient has finally stabilized on his current high flow nasal cannula settings. If he continues to worsen, we may need to reevaluate him for ICU level care. We will continue to monitor in the short-term for now. CTX/Azithro will be continued. He notes improvement today, but still SOB. 04/10/2020 Patient seems to be doing better today, weaning high flow nasal cannula oxygen requirements as able. He states he has bit of a cough but this is mild. He also had an episode of diarrhea but this has not recurred. INR and potassium are rising, continue to monitor with BMP daily. His WBC is risen abruptly at 9.9 though he is not clinically declined today at all. LFTs continue to drop. Blood cultures remain negative. He has no new complaints today. I had an extensive discussion with him during our phone encounter today and answered all of his questions to completion. 04/11/2020 Per my discussion with the lead painter, patient had some acute confusion overnight but was redirectable and his oxygen requirement was increased, therea fter seemed to improve. I was called by nursing this morning regarding the patient's continued acute decline despite escalation of NIV to BiPAP rather than high flow nasal cannula and despite increase FiO2 to 100%. Patient is still having desaturations to the 70s and 80s. I have called Dr. Shea in critical care and discussed the case in detail with him. He is in agreement that the patient requires ICU level care and he is accepted the patient to his service. The patient as of this morning has decided he would like to be intubated despite the chart indicating he had previously wanted to be DNR/DNI. Dr. Shea anticipates the patient will need to be intubated and prefers this be done in ICU in a controlled setting with the appropriate field support specialist in attendance. I discussed this plan with nursing and they are in agreement with this, planning to back the patient on his way down. Per RN, patient is currently still alert and talking, appears to be relatively stable for transportation to ICU. I have added some additional lab orders to assist with the monitoring of the patient's decline. We will need to take appropriate measures to transport the patient safely in order to contain the highly infectious virus that the patient currently has. 04/12/2020 I had a second discussion yesterday with Dr. Shea and he recommended the patient remain on the medical floor for the time being. Patient did seem to improve slightly after he was put on a higher concentration of oxygen along with his noninvasive ventilation pressures. Unfortunately, patient continues to become intermittently confused and pull off his mask. I would like to avoid putting the patient in restraints if at all possible, however it is very challenging to redirect the patient in the current coronavirus isolation environment. His is actively redirecting him whenever she notices he is getting confused or fiddling with his mask. I spoke at length with the nursing staff about the patient's desaturations when he pulls his mask off and they are doing her best to make sure he keeps this on. Patient's heart rate is improved today yesterday it had been in the 40s and 50s. We are unable to wean much of his pressure settings her oxygen concentration today. We will continue steroids and other interventions. Other than shortness of breath and some mild cough, patient has no new complaints today. Reason For Visit: COVID-19 PNEUMONIA,ACUTE RESPIRATORY FAILURE WITH Physical Exam Vital Signs: Temp Pulse Resp BP Pulse Ox 97.7 F 64 10 L 171/79 H 89 L 04/12/20 03:53 04/12/20 14:00 04/12/20 08:36 04/12/20 08:16 04/12/20 08:36 Intake & Output 04/11/20 04/12/20 04/13/20 06:59 06:59 06:59 Intake Total 1140 1420 Output Total 300 700 Balance 840 720 Weight 78.9 kg 80 kg General appearance: PRESENT: other - Due to patient being COVID-19 Susp ected/Positive, encounter was conducted using telephone and/or videochat and does not include a detailed in-person physical exam in order to preserve PPE and limit staff exposure to a dangerous pathogen. Results Laboratory Results: 04/12/20 03:07 04/12/20 03:07 04/12/20 04/12/20 03:07 03:07 WBC 8.8 RBC 3.93 L Hgb 8.6 L Hct 26.6 L MCV 68 L MCH 22.0 L MCHC 32.5 RDW 19.2 H Plt Count 258 Seg Neutrophils % 83.7 H Sodium 137.3 Potassium 4.6 Chloride 108 H Carbon Dioxide 23 Anion Gap 6 BUN 24 H Creatinine 0.87 Est GFR ( Amer) > 60 Glucose 117 H Calcium 8.2 L 04/07/20 17:15 Blood Blood Culture - Final NO GROWTH IN 5 DAYS 04/07/20 15:40 Blood Blood Culture - Final NO GROWTH IN 5 DAYS 04/07/20 04/07/20 15:40 15:40 Creatine Kinase 77 CK-MB (CK-2) 1.57 Troponin I 0.015 Impressions: Chest X-Ray 04/10/20 00:00 IMPRESSION: No significant change. Assessment and Plan - Diagnosis (1) Pneumonia due to COVID-19 virus Is this a current diagnosis for this admission?: Yes Plan: Tested positive for COVID-19 on 03/27/2020 outpatient at [facility]Ps office. Continue azithromycin/ceftriaxone for likely post viral bacterial infection Continue zinc supplements, vitamin C, vitamin D supplements as well as dexamethasone per current guidelines Gradually improving, wean high flow nasal cannula oxygen requirements as able 04/11/2020 Acute decline respiratory status requiring BiPAP and 100% FiO2: Transferred to ICU under the care of Dr. Shea 04/12/2020 Patient stayed on the floor and stabilized on higher noninvasive ventilation pressures and higher oxygen concentration, he did not require ICU level care yesterday Patient repeatedly pulling off his mask which greatly complicates his care. Likely he is getting confused intermittently from this long-term hypoxic state he is now in, is helping to redirect the patient when staff is not in the room. (2) Acute respiratory failure with hypoxia Is this a current diagnosis for this admission?: Yes (3) Anemia secondary to renal failure Is this a current diagnosis for this admission?: Yes (4) Chronic kidney disease (CKD), stage III (moderate) Is this a current diagnosis for this admission?: Yes (5) COVID-19 Is this a current diagnosis for this admission?: Yes (6) Coronary artery disease Qualifiers: Coronary Disease-Associated Artery/Lesion type: [place] artery [place] vs. transplanted heart: [place] heart Associated angina: without angina Qualified Code(s): I25.10 - Atherosclerotic heart disease of [place] coronary artery without angina pectoris Is this a current diagnosis for this admission?: Yes (7) Elevated liver function tests Is this a current diagnosis for this admission?: Yes (8) Hypertension Qualifiers: Hypertension type: essential hypertension Qualified Code(s): I10 - Essential (primary) hypertension Is this a current diagnosis for this admission?: Yes (9) Hyponatremia Is this a current diagnosis for this admission?: Yes (10) Leukopenia Qualifiers: Leukopenia type: unspecified Qualified Code(s): D72.819 - Decreased white blood cell count, unspecified Is this a current diagnosis for this admission?: Yes Plan: Resolved (11) Pneumonia Qualifiers: Pneumonia type: due to unspecified organism Laterality: left Lung locati on: lower lobe of lung Qualified Code(s): J18.9 - Pneumonia, unspecified organism Is this a current diagnosis for this admission?: Yes - Time Time Spent with patient: 25-34 minutes Medications reviewed and adjusted accordingly: Yes - Inpatient Certification Based on my medical assessment, after consideration of the patient's comorbidities, presenting symptoms, or acuity I expect that the services needed warrant INPATIENT care.: Yes I certify that my determination is in accordance with my understanding of [facility]'s requirements for reasonable and necessary INPATIENT services [42 CFR 412.3e].: Yes Medical Necessity: Significant Comorbidiites Make Outpatient Treatment Too Risky, Need Close Monitoring Due to Risk of Patient Decompensation, Risk of Complication if Not Cared For in Hospital, Risk of Diagnosis Which Will Require Inpatient Eval/Care/Monitoring
[2020-04-12] MEDS: ATORVASTATIN CALCIUM 40 MG TABLET PO SCH (23:15)
[2020-04-12] MEDS: TEMAZEPAM 15 MG CAPSULE PO SCH (23:19)
[2020-04-12] MEDS: CEFTRIAXONE 1 GM/D5W RTU 1 GM/50 ML RTUPB IV SCH (23:21)
[2020-04-12] MEDS: AZITHROMYCIN 500 MG in DEXTROSE 5%-WATER 250 ML IV SCH (23:30)
[2020-04-13] MEDS: DEXTROSE 5%-LACTATED RINGERS 1,000 ML IV PRN ×2 (00:01→22:55)
[2020-04-13] MEDS: ALBUTEROL SULFATE HFA (90 MCG/PUFF) 200 PUFF/8.5 GM MDI IH SCH ×4 (00:58→17:47)
[2020-04-13 03:18] LABS: HEMOGLOBIN 8.5 g/dL (13.5-17.0); MEAN CORPUSCULAR HEMOGLOBIN 21.9 pg (27.0-33.4); MEAN CORPUSCULAR HGB CONC 32.5 g/dL (32.0-36.0); MEAN CORPUSCULAR VOLUME 67 fl (80-97); PLATELET COUNT 199 10^3/uL (150-450); RED BLOOD COUNT 3.85 10^6/uL (4.35-5.55); RED CELL DISTRIBUTION WIDTH 19.2 % (11.5-14.0); WHITE BLOOD COUNT 11.2 10^3/uL (4.0-10.5)
[2020-04-13 03:27] LABS: INTERNATIONAL RATION (INR) 2.06; PROTHROMBIN TIME 23.5 SEC (11.4-15.4)
[2020-04-13 03:28] LABS: BLOOD UREA NITROGEN 22 mg/dL (7-20); CALCIUM 8.2 mg/dL (8.4-10.2); GLUCOSE 120 mg/dL (75-110); POTASSIUM 4.4 mmol/L (3.6-5.0)
[2020-04-13 03:33] LABS: ANION GAP 5 (5-19); CARBON DIOXIDE 24 mmol/L (22-30); CHLORIDE 109 mmol/L (98-107)
[2020-04-13 03:44] LABS: ABSOLUTE LYMPHOCYTES# (MANUAL) 0.2 10^3/uL (0.5-4.7); ABSOLUTE MONOCYTES # (MANUAL) 1.1 10^3/uL (0.1-1.4); BASOPHILS % (MANUAL) 0 % (0-2); EOSINOPHILS % (MANUAL) 0 % (0-6); LYMPHOCYTES % (MANUAL) 2 % (13-45); MONOCYTES % (MANUAL) 10 % (3-13); SEGMENTED NEUTROPHILS % (MAN) 88 % (42-78); TOTAL CELLS COUNTED 100
[2020-04-13 03:46] LABS: ANISOCYTOSIS 2+; OVALOCYTES 2+; PLATELET COMMENT ADEQUATE; POIKILOCYTOSIS 2+; SCHISTOCYTES SLIGHT; TOXIC VACUOLATION PRESENT
[2020-04-13] MEDS: HEPARIN SOD (PORCINE) 5,000 UNIT/ML 1 ML VIAL SUBCUT SCH ×3 (05:53→22:58)
[2020-04-13] MEDS: DEXAMETHASONE SOD PHOSPHATE INJ 4 MG/1 ML VIAL IV SCH ×3 (05:54→22:56)
[2020-04-13 10:13] LABS: ARTERIAL BLOOD BASE EXCESS -4.7 mmol/L; ARTERIAL BLOOD FIO2 100%; ARTERIAL BLOOD H2CO3 0.75 mmol/L (1.05-1.35); ARTERIAL BLOOD HCO3 17.2 mmol/L (20-24); ARTERIAL BLOOD O2 SATURATION 91.3 % (94-98); ARTERIAL BLOOD PCO2 24.8 mmHg (35-45); ARTERIAL BLOOD PH 7.46 (7.35-7.45); ARTERIAL BLOOD PO2 56.1 mmHg (80-100); ARTERIAL BLOOD TOTAL CO2 17.9 mmol/L (23-27)
[2020-04-13] MEDS: CITALOPRAM HYDROBROMIDE 20 MG TABLET PO SCH (10:30)
[2020-04-13] MEDS: ASCORBIC ACID 500 MG TABLET PO SCH (10:31)
[2020-04-13] MEDS: DOCUSATE SODIUM 100 MG CAPSULE PO SCH ×2 (10:31→18:06)
[2020-04-13] MEDS: CLOPIDOGREL BISULFATE 75 MG TABLET PO SCH (10:31)
[2020-04-13] MEDS: ENALAPRIL MALEATE 2.5 MG TABLET PO SCH (10:31)
[2020-04-13] MEDS: FAMOTIDINE 20 MG TABLET PO SCH ×2 (10:31→17:39)
[2020-04-13] MEDS: MULTIVITAMIN TABLET PO SCH (10:31)
[2020-04-13] MEDS: ZINC SULFATE 220 MG CAPSULE PO SCH (10:32)
[2020-04-13] MEDS: CHOLECALCIFEROL (D3) 1,000 UNIT (25 MCG) TABLET PO SCH (10:32)
[2020-04-13] MEDS: TAMSULOSIN HCL 0.4 MG CAP.SR.24H PO SCH (17:39)
--- NOTE | 2020-04-13 19:00 | PDOC PROGRESS REPORT ---
Subjective Progress Note for:: 04/13/20 Subjective:: Due to patient being COVID-19 Suspected/Positive, encounter was conducted using telephone and/or videochat and does not include a detailed in-person physical exam in order to preserve PPE and limit staff exposure to a dangerous pathogen. 04/09/2020 Patient is still quite short of breath today requiring high flow nasal cannula. I had a long discussion with his nurse today regarding his respiratory status and it seems that patient has finally stabilized on his current high flow nasal cannula settings. If he continues to worsen, we may need to reevaluate him for ICU level care. We will continue to monitor in the short-term for now. CTX/Azithro will be continued. He notes improvement today, but still SOB. 04/10/2020 Patient seems to be doing better today, weaning high flow nasal cannula oxygen requirements as able. He states he has bit of a cough but this is mild. He also had an episode of diarrhea but this has not recurred. INR and potassium are rising, continue to monitor with BMP daily. His WBC is risen abruptly at 9.9 though he is not clinically declined today at all. LFTs continue to drop. Blood cultures remain negative. He has no new complaints today. I had an extensive discussion with him during our phone encounter today and answered all of his questions to completion. 04/11/2020 Per my discussion with the public health epidemiologist, patient had some acute confusion overnight but was redirectable and his oxygen requirement was increased, therea fter seemed to improve. I was called by nursing this morning regarding the patient's continued acute decline despite escalation of NIV to BiPAP rather than high flow nasal cannula and despite increase FiO2 to 100%. Patient is still having desaturations to the 70s and 80s. I have called Dr. Shea in critical care and discussed the case in detail with him. He is in agreement that the patient requires ICU level care and he is accepted the patient to his service. The patient as of this morning has decided he would like to be intubated despite the chart indicating he had previously wanted to be DNR/DNI. Dr. Shea anticipates the patient will need to be intubated and prefers this be done in ICU in a controlled setting with the appropriate passport support associate in attendance. I discussed this plan with nursing and they are in agreement with this, planning to back the patient on his way down. Per RN, patient is currently still alert and talking, appears to be relatively stable for transportation to ICU. I have added some additional lab orders to assist with the monitoring of the patient's decline. We will need to take appropriate measures to transport the patient safely in order to contain the highly infectious virus that the patient currently has. 04/12/2020 I had a second discussion yesterday with Dr. Shea and he recommended the patient remain on the medical floor for the time being. Patient did seem to improve slightly after he was put on a higher concentration of oxygen along with his noninvasive ventilation pressures. Unfortunately, patient continues to become intermittently confused and pull off his mask. I would like to avoid putting the patient in restraints if at all possible, however it is very challenging to redirect the patient in the current coronavirus isolation environment. His is actively redirecting him whenever she notices he is getting confused or fiddling with his mask. I spoke at length with the nursing staff about the patient's desaturations when he pulls his mask off and they are doing her best to make sure he keeps this on. Patient's heart rate is improved today yesterday it had been in the 40s and 50s. We are unable to wean much of his pressure settings her oxygen concentration today. We will continue steroids and other interventions. Other than shortness of breath and some mild cough, patient has no new complaints today. 04/13/2020 Patient was doing quite poorly this morning again, tripoding, using accessory muscles to breathe, oxygen desaturation despite using 100% FiO2 and increased pressures on BiPAP. I discussed the case at length with nursing and respiratory therapy. We obtained an ABG which showed a notably low PO2. Over time, patient was able to stabilize and return to his usual level of comfort that I had seen yesterday. He is doing quite poorly overall and having regular episodes of desaturation and respiratory distress. I am concerned that he is going to continue to decline until he is intubated. I discussed with him and his today what his wishes would be if he were to stop breathing or experience cardiac arrest and they are both now in agreement that he should be full code. I have made this change in the chart to reflect his wishes. He is very interested in trying 1 of the off label/experimental treatments currently being studied for COVID-19. I attempted to speak to pharmacy billing adjudicator and risk- management but was unable to get either of them on the phone today. Patient has no new complaints today now that he has stabilized. Reason For Visit: COVID-19 PNEUMONIA,ACUTE RESPIRATORY FAILURE WITH Physical Exam Vital Signs: Temp Pulse Resp BP Pulse Ox 97.2 F 82 20 122/64 98 04/13/20 16:00 04/13/20 16:00 04/13/20 16:00 04/13/20 16:00 04/13/20 16:00 Intake & Output 04/12/20 04/13/20 04/14/20 06:59 06:59 06:59 Intake Total 1420 300 Output Total 700 400 Balance 720 -100 Weight 80 kg 74.6 kg 74.6 kg General appearance: PRESENT: no acute distress, cooperative, other - Due to patient being COVID-19 Suspected/Positive, encounter was conducted using telephone and/or videochat and does not include a detailed in-person physical exam in order to preserve PPE and limit staff exposure to a dangerous pathogen. Results Laboratory Results: 04/13/20 03:07 04/13/20 03:07 04/13/20 04/13/20 04/13/20 03:07 03:07 09:35 WBC 11.2 H RBC 3.85 L Hgb 8.5 L Hct 26.0 L MCV 67 L MCH 21.9 L MCHC 32.5 RDW 19.2 H Plt Count 199 Seg Neutrophils % Not Reportable Carbonic Acid 0.75 L HCO3/H2CO3 Ratio 22:1 ABG pH 7.46 H ABG pCO2 24.8 L ABG pO2 56.1 L ABG HCO3 17.2 L ABG O2 Saturation 91.3 L ABG Base Excess -4.7 FiO2 100% Sodium 137.5 Potassium 4.4 Chloride 109 H Carbon Dioxide 24 Anion Gap 5 BUN 22 H Creatinine 0.93 Est GFR ( Amer) > 60 Glucose 120 H Calcium 8.2 L 04/07/20 17:15 Blood Blood Culture - Final NO GROWTH IN 5 DAYS 04/07/20 15:40 Blood Blood Culture - Final NO GROWTH IN 5 DAYS 04/07/20 04/07/20 15:40 15:40 Creatine Kinase 77 CK-MB (CK-2) 1.57 Troponin I 0.015 Impressions: Chest X-Ray 04/10/20 00:00 IMPRESSION: No significant change. Assessment and Plan - Diagnosis (1) Pneumonia due to COVID-19 virus Is this a current diagnosis for this admission?: Yes Plan: Tested positive for COVID-19 on 03/27/2020 outpatient at PCPs office. Continue azithromycin/ceftriaxone for likely post viral bacterial infection Continue zinc supplements, vitamin C, vitamin D supplements as well as dexamethasone per current guidelines Gradually improving, wean high flow nasal cannula oxygen requirements as able 04/11/2020 Acute decline respiratory status requiring BiPAP and 100% FiO2: Transferred to ICU under the care of Dr. Shea 04/12/2020 Patient stayed on the floor and stabilized on higher noninvasive ventilation pressures and higher oxygen concentration, he did not require ICU level care yesterday Patient repeatedly pulling off his mask which greatly complicates his care. Likely he is getting confused intermittently from this long-term hypoxic state he is now in, is helping to redirect the patient when staff is not in the room. 04/13/2020 Had another episode of decompensation this morning despite increasing FiO2 to 100%; subsequently resolved with time I discussed using current off label/experimental COVID-19 treatments and the patient and spouse are very interested in trying this and stated they would consent to a trial of these drugs if they were offered. We will need to find out from administration how we can obtain 1 of these drugs (Tocilizumab, remdesivir, ivermectin) (2) Acute respiratory failure with hypoxia Is this a current diagnosis for this admission?: Yes (3) Anemia secondary to renal failure Is this a current diagnosis for this admission?: Yes (4) Chronic kidney disease (CKD), stage III (moderate) Is this a current diagnosis for this admission?: Yes (5) COVID-19 Is this a current diagnosis for this admission?: Yes (6) Coronary artery disease Qualifiers: Coronary Disease-Associated Artery/Lesion type: nikolai artery [place] vs. transplanted heart: nikolai heart Associated angina: without angina Qualified Code(s): I25.10 - Atherosclerotic heart disease of nikolai coronary artery without angina pectoris Is this a current diagnosis for this admission?: Yes (7) Elevated liver function tests Is this a current diagnosis for this admission?: Yes (8) Hypertension Qualifiers: Hypertension type: essential hypertension Qualified Code(s): I10 - Essential (primary) hypertension Is this a current diagnosis for this admission?: Yes (9) Hyponatremia Is this a current diagnosis for this admission?: Yes (10) Leukopenia Qualifiers: Leukopenia type: unspecified Qualified Code(s): D72.819 - Decreased white blood cell count, unspecified Is this a current diagnosis for this admission?: Yes (11) Pneumonia Qualifiers: Pneumonia type: due to unspecified organism Laterality: left Lung location: lower lobe of lung Qualified Code(s): J18.9 - Pneumonia, unspecified organism Is this a current diagnosis for this admission?: Yes - Time Time Spent with patient: 25-34 minutes Medications reviewed and adjusted accordingly: Yes - Inpatient Certification Based on my medical assessment, after consideration of the patient's comorbidities, presenting symptoms, or acuity I expect that the services needed warrant INPATIENT care.: Yes I certify that my determination is in accordance with my understanding of Medicare's requirements for reasonable and necessary INPATIENT services [42 CFR 412.3e].: Yes Medical Necessity: Significant Comorbidiites Make Outpatient Treatment Too Risky, Need Close Monitoring Due to Risk of Patient Decompensation, Risk of Complication if Not Cared For in Hospital, Risk of Diagnosis Which Will Require Inpatient Eval/Care/Monitoring
[2020-04-13] MEDS: AZITHROMYCIN 500 MG in DEXTROSE 5%-WATER 250 ML IV SCH (22:45)
[2020-04-13] MEDS: TEMAZEPAM 15 MG CAPSULE PO SCH (22:59)
[2020-04-13] MEDS: CEFTRIAXONE 1 GM/D5W RTU 1 GM/50 ML RTUPB IV SCH (23:01)
[2020-04-13] MEDS: ATORVASTATIN CALCIUM 40 MG TABLET PO SCH (23:19)
[2020-04-14 03:37] LABS: INTERNATIONAL RATION (INR) 2.14; PROTHROMBIN TIME 24.3 SEC (11.4-15.4)
[2020-04-14] MEDS: DEXAMETHASONE SOD PHOSPHATE INJ 4 MG/1 ML VIAL IV SCH ×3 (04:28→22:42)
[2020-04-14] MEDS: HEPARIN SOD (PORCINE) 5,000 UNIT/ML 1 ML VIAL SUBCUT SCH (06:24)
[2020-04-14] MEDS: ALBUTEROL SULFATE HFA (90 MCG/PUFF) 200 PUFF/8.5 GM MDI IH SCH ×4 (06:25→18:14)
[2020-04-14 09:16] LABS: HEMATOCRIT 27.2 % (37.9-51.0); HEMOGLOBIN 8.9 g/dL (13.5-17.0); MEAN CORPUSCULAR HEMOGLOBIN 22.4 pg (27.0-33.4); MEAN CORPUSCULAR HGB CONC 32.8 g/dL (32.0-36.0); MEAN CORPUSCULAR VOLUME 68 fl (80-97); PLATELET COUNT 234 10^3/uL (150-450); RED BLOOD COUNT 3.99 10^6/uL (4.35-5.55); WHITE BLOOD COUNT 10.7 10^3/uL (4.0-10.5)
[2020-04-14 09:38] LABS: ANION GAP 7 (5-19); BLOOD UREA NITROGEN 20 mg/dL (7-20); C-REACTIVE PROTEIN 86.4 mg/L (<10.0); CALCIUM 8.5 mg/dL (8.4-10.2); CARBON DIOXIDE 24 mmol/L (22-30); CHLORIDE 108 mmol/L (98-107); GLUCOSE 131 mg/dL (75-110); POTASSIUM 4.8 mmol/L (3.6-5.0)
[2020-04-14 09:51] LABS: ABSOLUTE LYMPHOCYTES# (MANUAL) 0.3 10^3/uL (0.5-4.7); ABSOLUTE MONOCYTES # (MANUAL) 0.4 10^3/uL (0.1-1.4); ANISOCYTOSIS 2+; BASOPHILS % (MANUAL) 0 % (0-2); EOSINOPHILS % (MANUAL) 0 % (0-6); LYMPHOCYTES % (MANUAL) 3 % (13-45); MONOCYTES % (MANUAL) 4 % (3-13); SEGMENTED NEUTROPHILS % (MAN) 93 % (42-78); TOTAL CELLS COUNTED 100
[2020-04-14 09:52] LABS: OVALOCYTES 2+; PLATELET COMMENT ADEQUATE; POLYCHROMASIA SLIGHT
[2020-04-14 09:53] LABS: HYPOCHROMASIA 1+
[2020-04-14] MEDS ORDERED: PANTOPRAZOLE SODIUM 40 MG VIAL IV SCH (10:00)
[2020-04-14 11:21] LABS: ARTERIAL BLOOD BASE EXCESS -1.6 mmol/L; ARTERIAL BLOOD FIO2 90%; ARTERIAL BLOOD H2CO3 1.04 mmol/L (1.05-1.35); ARTERIAL BLOOD HCO3 22.3 mmol/L (20-24); ARTERIAL BLOOD PCO2 34.4 mmHg (35-45); ARTERIAL BLOOD PH 7.43 (7.35-7.45); ARTERIAL BLOOD TOTAL CO2 23.4 mmol/L (23-27)
[2020-04-14] MEDS: DOCUSATE SODIUM 100 MG CAPSULE PO SCH ×2 (11:54→17:26)
[2020-04-14] MEDS: MULTIVITAMIN TABLET PO SCH (11:54)
[2020-04-14] MEDS: CLOPIDOGREL BISULFATE 75 MG TABLET PO SCH (11:54)
[2020-04-14] MEDS: ZINC SULFATE 220 MG CAPSULE PO SCH (11:54)
[2020-04-14] MEDS: ENOXAPARIN SODIUM INJ 80 MG/0.8 ML DISP.SYRIN SUBCUT SCH ×2 (11:55→22:43)
[2020-04-14] MEDS: CHOLECALCIFEROL (D3) 1,000 UNIT (25 MCG) TABLET PO SCH (11:55)
[2020-04-14] MEDS: CITALOPRAM HYDROBROMIDE 20 MG TABLET PO SCH (11:55)
[2020-04-14] MEDS: ASCORBIC ACID 500 MG TABLET PO SCH (11:57)
[2020-04-14] MEDS: ENALAPRIL MALEATE 2.5 MG TABLET PO SCH (11:58)
[2020-04-14] MEDS ORDERED: HYDRALAZINE HCL INJ/PF 20 MG/1 ML SDV IV PRN (12:10)
--- NOTE | 2020-04-14 12:21 | PDOC PROGRESS REPORT ---
Subjective Progress Note for:: 04/14/20 Subjective:: The patient is a 64-year-old male who has a past medical history of coronary artery disease, hypertension, hyperlipidemia, PVD, TIA, CKD, arthritis, depression who was admitted 04/07/2020 for acute respiratory failure with hypoxia related to COVID-19 pneumonia (confirmed COVID-19 testing 03/27/2020). Patient was seen on morning rounds. He is found resting in bed, comfortably, on BiPAP with FiO2 of 90%. He is alert and oriented. Does not appear to have increased work of breathing today. He reports fatigue but otherwise has no complaints at this time. He denies fever, chest pain, palpitations, abdominal pain, nausea and vomiting. Discussed recommendations for position changing; patient is agreeable to attempting to position left lateral and prone. With assistance, he is placed in left lateral position with BiPAP in place. He is personally monitored for s everal more minutes; tolerating well. Plan of care discussed with nursing. Reason For Visit: COVID-19 PNEUMONIA,ACUTE RESPIRATORY FAILURE WITH Physical Exam Vital Signs: Temp Pulse Resp BP Pulse Ox 97.7 F 66 25 H 150/86 H 100 04/14/20 08:14 04/14/20 08:14 04/14/20 08:14 04/14/20 08:14 04/14/20 08:14 Intake & Output 04/13/20 04/14/20 04/15/20 06:59 06:59 06:59 Intake Total 300 1300 Output Total 400 800 Balance -100 500 Weight 74.6 kg 75 kg General appearance: PRESENT: no acute distress, cooperative, well-developed, well-nourished Head exam: PRESENT: atraumatic, normocephalic Eye exam: PRESENT: conjunctiva pink, EOMI, PERRLA. ABSENT: scleral icterus Mouth exam: PRESENT: moist, tongue midline Respiratory exam: PRESENT: clear to auscultation moni, symmetrical, tachypnea - Shallow, unlabored, other - BiPAP. ABSENT: rales, rhonchi, wheezes Cardiovascular exam: PRESENT: RRR, +S1, +S2. ABSENT: diastolic murmur, rubs, systolic murmur Pulses: PRESENT: normal dorsalis pedis pul Vascular exam: PRESENT: normal capillary refill GI/Abdominal exam: PRESENT: normal bowel sounds, soft. ABSENT: distended, guarding, mass, organolmegaly, rebound, tenderness Rectal exam: PRESENT: deferred Extremities exam: PRESENT: full ROM. ABSENT: calf tenderness, clubbing, pedal edema Neurological exam: PRESENT: alert, awake, oriented to person, oriented to place, oriented to time, oriented to situation, CN II-XII grossly intact, other - Fatigued. ABSENT: motor sensory deficit Psychiatric exam: PRESENT: appropriate affect, normal mood. ABSENT: homicidal ideation, suicidal ideation Skin exam: PRESENT: dry, intact, warm. ABSENT: cyanosis, rash Results Laboratory Results: 04/14/20 08:53 04/14/20 08:53 04/14/20 04/14/20 04/14/20 08:53 08:53 11:05 WBC 10.7 H RBC 3.99 L Hgb 8.9 L Hct 27.2 L MCV 68 L MCH 22.4 L MCHC 32.8 RDW 19.0 H Plt Count 234 Seg Neutrophils % Not Reportable Carbonic Acid 1.04 L HCO3/H2CO3 Ratio 21:1 ABG pH 7.43 ABG pCO2 34.4 L ABG pO2 149.0 H ABG HCO3 22.3 ABG O2 Saturation 99.0 H ABG Base Excess -1.6 FiO2 90% Sodium 138.5 Potassium 4.8 Chloride 108 H Carbon Dioxide 24 Anion Gap 7 BUN 20 Creatinine 0.84 Est GFR ( Amer) > 60 Glucose 131 H Calcium 8.5 Ferritin 171.00 C-Reactive Protein 86.4 H 04/07/20 04/07/20 15:40 15:40 Creatine Kinase 77 CK-MB (CK-2) 1.57 Troponin I 0.015 Impressions: Chest X-Ray 04/10/20 00:00 IMPRESSION: No significant change. Assessment and Plan - Diagnosis (1) Pneumonia due to COVID-19 virus Is this a current diagnosis for this admission?: Yes Plan: Tested positive for COVID-19 on 03/27/2020 outpatient at PCPs office. Continue azithromycin/ceftriaxone for likely post viral bacterial infection Continue zinc supplements, vitamin C, vitamin D, and melatonin supplements -Increse dexamethasone to 8mg/daily in divided dodes per current guidelines Laboratory evaluation this morning reveals persistent lymphocytosis 3, d-dimer is 6.65, CRP 86.4, LDH is 611, ferritin 171. -Start full dose Lovenox -Begin scheduled turns, including prone position ABG with slight improvement; PO2 149 on 90% FiO2. -Continue gradual weaning. (2) Acute respiratory failure with hypoxia Is this a current diagnosis for this admission?: Yes Plan: Secondary to #1. Evaluation management as above. (3) Anemia secondary to renal failure Is this a current diagnosis for this admission?: Yes Plan: Hemoglobin currently stable; 8.9. No active bleeding. Continue multivitamin w/ iron supplementation. Trend CBC. (4) Coronary artery disease Qualifiers: Coronary Disease-Associated Artery/Lesion type: [place] artery [place] vs. transplanted heart: [place] heart Associated angina: without angina Qualified Code(s): I25.10 - Atherosclerotic heart disease of [place]aviat[place] coronary artery without angina pectoris Is this a current diagnosis for this admission?: Yes Plan: Continue home dose Plavix and statin therapy. Antihypertensives as below. Monitor on telemetry. (5) Elevated liver function tests Is this a current diagnosis for this admission?: Yes Plan: Trending down. Likely secondary to viral infection accompanied by leukopenia. Notably transaminases were normal in 08/2019, improving here Continue gentle IVF. Avoid hepatotoxic medications as able. Follow up chemistry. (6) Hypertension Qualifiers: Hypertension type: essential hypertension Qualified Code(s): I10 - Essential (primary) hypertension Is this a current diagnosis for this admission?: Yes Plan: Blood pressure slightly elevated. 150/86 Continue home dose enalapril. Adjust dose as indicated. Hydralazine as needed for blood pressure control. Cardiac diet. (7) Pneumonia Qualifiers: Pneumonia type: due to unspecified organism Laterality: left Lung location: lower lobe of lung Qualified Code(s): J18.9 - Pneumonia, unspecified organism Is this a current diagnosis for this admission?: Yes Plan: Blood cultures negative at 5 days. Sputum cultures not obtained; no sputum production at this time. Management as above (8) COVID-19 Is this a current diagnosis for this admission?: Yes Plan: Confirmed positive test 03/27/2020 Management as above. (9) Leukopenia Qualifiers: Leukopenia type: unspecified Qualified Code(s): D72.819 - Decreased white blood cell count, unspecified Is this a current diagnosis for this admission?: Yes Plan: Resolved (10) Hyponatremia Is this a current diagnosis for this admission?: Yes Plan: Resolved. Likely secondary to dehydration.
[2020-04-14] MEDS: DEXTROSE 5%-LACTATED RINGERS 1,000 ML IV PRN (13:14)
[2020-04-14] MEDS: TAMSULOSIN HCL 0.4 MG CAP.SR.24H PO SCH (18:14)
[2020-04-14] MEDS ORDERED: MELATONIN 3 MG TABLET PO SCH (22:00)
[2020-04-14] MEDS: ATORVASTATIN CALCIUM 40 MG TABLET PO SCH (22:43)
[2020-04-14] MEDS: TEMAZEPAM 15 MG CAPSULE PO SCH (22:45)
[2020-04-14] MEDS: CEFTRIAXONE 1 GM/D5W RTU 1 GM/50 ML RTUPB IV SCH (22:46)
[2020-04-14] MEDS: AZITHROMYCIN 500 MG in DEXTROSE 5%-WATER 250 ML IV SCH (23:36)
[2020-04-15] MEDS: ALBUTEROL SULFATE HFA (90 MCG/PUFF) 200 PUFF/8.5 GM MDI IH SCH ×2 (00:12→05:36)
[2020-04-15 08:31] VITALS: BP 172/86
[2020-04-15] MEDS ORDERED: EPINEPHRINE INJ 1 MG/10 ML DISP.SYRIN ONE ×2 (09:00)
[2020-04-15] MEDS ORDERED: SUCCINYLCHOLINE CHLORIDE INJ 200 MG/10 ML VIAL ONE (09:00)
[2020-04-15] MEDS ORDERED: ATROPINE SULFATE INJ 1 MG/10 ML DISP.SYRIN IV ONE (09:00)
[2020-04-15] MEDS ORDERED: SODIUM BICARBONATE 8.4% INJ 50 MEQ/50 ML DISP.SYRIN ONE ×4 (09:00→10:40)
[2020-04-15] MEDS ORDERED: NALOXONE HCL INJ/PF 0.4 MG/1 ML SDV ONE (09:00)
[2020-04-15 09:39] LABS: HEMATOCRIT 30.7 % (37.9-51.0); HEMOGLOBIN 9.5 g/dL (13.5-17.0); MEAN CORPUSCULAR HEMOGLOBIN 21.6 pg (27.0-33.4); MEAN CORPUSCULAR HGB CONC 31.1 g/dL (32.0-36.0); MEAN CORPUSCULAR VOLUME 70 fl (80-97); PLATELET COUNT 454 10^3/uL (150-450); RED BLOOD COUNT 4.41 10^6/uL (4.35-5.55)
[2020-04-15 09:54] LABS: ANION GAP 12 (5-19); BLOOD UREA NITROGEN 20 mg/dL (7-20); CALCIUM 8.9 mg/dL (8.4-10.2); CARBON DIOXIDE 21 mmol/L (22-30); CHLORIDE 108 mmol/L (98-107); GLUCOSE 138 mg/dL (75-110); POTASSIUM 5.2 mmol/L (3.6-5.0)
[2020-04-15 10:42] LABS: WHITE BLOOD COUNT 25.2 10^3/uL (4.0-10.5)
[2020-04-15 10:44] LABS: ABSOLUTE LYMPHOCYTES# (MANUAL) 1.5 10^3/uL (0.5-4.7); ABSOLUTE MONOCYTES # (MANUAL) 3.3 10^3/uL (0.1-1.4); BASOPHILS % (MANUAL) 0 % (0-2); EOSINOPHILS % (MANUAL) 0 % (0-6); LYMPHOCYTES % (MANUAL) 6 % (13-45); MONOCYTES % (MANUAL) 13 % (3-13); SEGMENTED NEUTROPHILS % (MAN) 81 % (42-78); TOTAL CELLS COUNTED 100
[2020-04-15 10:45] LABS: ANISOCYTOSIS 2+; HYPOCHROMASIA 1+
[2020-04-15 10:46] LABS: BURR CELLS 1+; OVALOCYTES 3+; PLATELET COMMENT ADEQUATE
--- NOTE | 2020-04-15 11:42 | Operative Report ---
Bedside Procedure - History of Present Illness History of Present Illness: BRAYAN CHU is a 64 year old male who presented to the emergency room on 04/08/2020 with a 4-day history of dyspnea. He admits testing positive for COVID-19 on 03/27/2020 and had been quarantining at home. He was admitted for treatment of COVID-19 pneumonia. Earlier today, while on BiPAP, the patient had an acute change in mental status associated with hemodynamic collapse that rapidly deteriorated to cardiac arrest. EDMAR MARTINEZ was called. I was asked to intubate the patient. During preparation for intubation, the patient developed profound bradycardia and then PEA arrest. CPR was then initiated again. Endotracheal intubation was performed immediately upon ROSC. No consent due to the emergent nature of the procedure. I wore a surgical cap, mask with protective eyewear, gown and gloves throughout the procedure. The patient was on a cardiac cath lab manager including continuous pulse oximetry. Rapid Sequence Intubation was conducted. The patient received 20 mg etomidate IV and 75 mg succinylcholine IV. Cricoid pressure was maintained from time induction agent was given to time of cuff balloon inflation. Using a MAC4 laryngoscope, GlideScope and a size 7.5 endotracheal tube with stylet, the patient was intubated on the 1st attempt. The stylet was removed and cuff balloon was inflated. Appropriate endotracheal tube position was confirmed by direct visualization of vocal cord passage, fogging of the tube, CO2 colometric indicator and symmetric breath sounds. The tube was secured at 24 cm at the lips. Postprocedure CXR could not be obtained due to recurrent episodes of PEA arrest. Please see EDMAR MARTINEZ notes for details. The patient failed to achieve ROSC despite over 40 minutes of CPR/ACLS efforts. Indication for Procedure: cardiopulmonary arrest and resuscitation Date: 04/15/20 Provider: CASEY OJSÉ
--- NOTE | 2020-04-15 11:55 | Progress Note ---
Provider Note Provider Note: Critical Care Note: Notified by nursing early this morning that the patient had increased tachycardia, tachypnea, with an SPO2 in the mid 80s on BiPAP with an FiO2 of 100%. On evaluation of the patient, he was found to be lethargic but oriented, responsive to questions, and following directions. The IPAP and EPAP settings were adjusted with direct visualization, FiO2 remains at 100%. The patient remained under direct observation by myself and the primary nurse, ELINA Vann. Over the next several minutes, the patient briefly appeared improved with heart rate trending down from 1 20-1 06 and a respiratory rate from 38-30 and maintaining oxygen saturations of 82%. Patient was noted to have left lower lobe rhonchi; questional fine crackles. Discussed with nursing plan to obtain stat chest x-ray, EKG, ABG and 20 of Lasix IV. Due to COVID-19 precautions, communication outside the room was somewhat limited. Therefore, I briefly stepped to the nursing station to ask for assistance and noted on the manager development that the patient's heart rate had decreased to 80. Rapid response was called at 10:05. The nursing roller shop supervisor was immediately called; requested anesthesia to bedside for emergent intubation. Upon completion of the phone call, telemetry showed a heart rate of 30. ACLS code called at 10:06. CPR was immediately initiated by the primary nurse with transition to BVM by myself. Initial rhythm was Sinus bradycardia to PEA. The code team responded to the bedside including the dough mixing machine operator, Dr. Shea, ICU nurse, Nursing roller shop supervisor, and multiple nursing staff from the [facility]. The patient was intubated by Dr. Shea using glidescope. Confirmed by aus cultation and color change. Throughout the code event the patient did have ROSC multiple times with, bradycardic, faint pulses identified at the femoral utilizing doppler. Unfortunately, these periods were brief and would deteriorate into PEA. ACLS continued per standard protocol with additional medications as verbally ordered by Dr. Shea. Over the course the code, in total, patient received: Succinylcholine Bicarb x6 Atropine x1 Epinepherine x15 Unfortunately, time of was pronounced at 10:50 am. Final rhythm asystole. Patient's family notified. Total Critical Care time: 90 minutes.
--- NOTE | 2020-04-15 12:06 | Death Summary ---
Summary Date : 04/15/20 Time of :: 10:50 Autopsy: No Resuscitation Status: Full Code - Final Diagnosis (1) Pneumonia due to COVID-19 virus Is this a current diagnosis for this admission?: Yes (2) Acute respiratory failure with hypoxia Is this a current diagnosis for this admission?: Yes (3) Anemia secondary to renal failure Is this a current diagnosis for this admission?: Yes (4) Coronary artery disease Is this a current diagnosis for this admission?: Yes (5) Elevated liver function tests Is this a current diagnosis for this admission?: Yes (6) Hypertension Is this a current diagnosis for this admission?: Yes (7) Pneumonia Is this a current diagnosis for this admission?: Yes (8) COVID-19 Is this a current diagnosis for this admission?: Yes (9) Leukopenia Is this a current diagnosis for this admission?: Yes (10) Hyponatremia Is this a current diagnosis for this admission?: Yes Hospital Course:: Per H&P by Dr. Peña: BRAYAN CHU is a 64 year old male who presented emergency room with a 4-day history of dyspnea. He admits testing positive for COVID-19 on 03/27/2020 and since that time has been quarantining at home. 4 days ago he began having mild dyspnea which has subsequently progressed to becoming severe today. His dyspnea is worsened by exertion and activity. His dyspnea has been accompanied by generalized malaise, ague and intermittent fevers to 103 F, and has been associated with episodic nausea with vomiting and diarrhea. He denies other associated or accompanying signs and symptoms. He denies prior similar episodes. He notes his was diagnosed with COVID-19 2 weeks ago and is hospitalized in the ICU on a ventilator. He has not identified any additional aggravating or ameliorating factors for his dyspnea. In the emergency room he was found to have a leukopenia, anemia, elevated liver function tests, hyponatremia and a possible left lower lobe pneumonia with acute hypoxic respiratory failure. He was subsequently admitted to the hospital for further evaluation and treatment. Brief Course: Patient was admitted to [facility] on continuous cardiac telemetry. He was supported with IV azithromycin, Rocephin, Decadron, full dose Lovenox, albuterol HFA, supplemental oxygen, HFNC/BiPAP. The patient's clinical status wax and wane with concern regarding increased hypoxia prompting consultation with the physical therapist aide 04/11/2020. At that time, it was determined that the patient did not yet require ICU level care. Continued aggressive pulmonary support was provided with a gradual improvement in his labs, mentation, and respiratory status. Early this morning the patient had a sudden worsening with increased tachycardia, tachypnea and worsening SpO2. Despite increasing FiO2 to 100%, the patient rapidly deteriorated into Respiratory Arrest. Initial rhythms were sinus bradicardia to PEA. Unfortunately, the patient as a result despite heroic measures. See separate Provider Note for Critical Care/ACLS summary. Time of 10:50. Cause: 1) Respiratory Arrest. 2) Acute respiratory failure with hypoxia 3) SARS CoV-2 Pneumonia
== END 2020-04-15 18:02 | DRG 177 ==
LOC: ER 15:32 → EH 17:29 → 3N 20:46
PROVIDERS: ADMIT Emergency Medicine; ATTEND Internal Medicine
PROC: 5A09557 Assistance with Respiratory Ventilation, Greater than 96 Consecutive Hours, Continuous Positive Airway Pressure (ICD-10-PCS; principal; 2020-04-07)
PROC: 0BH18EZ Insertion of Endotracheal Airway into Trachea, Via Natural or Artificial Opening Endoscopic (ICD-10-PCS; 2020-04-15)
DX: U07.1 COVID-19 (principal); J12.89 Other viral pneumonia; J96.01 Acute respiratory failure with hypoxia; E87.1 Hypo-osmolality and hyponatremia; I12.9 Hypertensive chronic kidney disease with stage 1 through stage 4 chronic kidney disease, or unspecified chronic kidney disease; N18.3 Chronic kidney disease, stage 3 (moderate); I25.10 Atherosclerotic heart disease of native coronary artery without angina pectoris; D63.1 Anemia in chronic kidney disease; E78.5 Hyperlipidemia, unspecified; F32.9 Major depressive disorder, single episode, unspecified; D72.819 Decreased white blood cell count, unspecified; M19.90 Unspecified osteoarthritis, unspecified site; I73.9 Peripheral vascular disease, unspecified; R94.5 Abnormal results of liver function studies; Z87.891 Personal history of nicotine dependence; Z90.49 Acquired absence of other specified parts of digestive tract; Z95.1 Presence of aortocoronary bypass graft; Z82.49 Family history of ischemic heart disease and other diseases of the circulatory system; Z85.828 Personal history of other malignant neoplasm of skin; Z86.73 Personal history of transient ischemic attack (TIA), and cerebral infarction without residual deficits
CPT/HCPCS: 36415; 36600; 71045; 80048; 80053; 80076; 81001; 82550; 82553; 82728; 82803; 82962; 83605; 83615; 83735; 84484; 85025; 85027; 85379; 85610; 86140; 87040; 87635; 92950; 93005; 93010; 94660; 96374; 99291; 99292; C1887; C9113; C9803; J0171; J0330; J0456; J0461; J0696; J1100; J1630; J1644; J1650; J1956; J2060; J2310; J2543; J3370; J3490; J7060; J7120; J7121